=== PATIENT | male | born 1935 | race Caucasian/White ===

== ENCOUNTER 2024-04-23 09:28 | Emergency (ER) | payer MEDICARE, SELFPAY ==
[2024-04-23 09:32] VITALS: BP 190/75; PULSE 64; RESP 18; TEMP 36.6; O2SAT 99; BMI 23.8
--- OUTSIDE RECORDS SUMMARY | 2024-04-23 09:32 | XMS_ITS | Clinical Summary ---
Author Organization [facility] Address [place], [place] [address] Care Team Providers Care Pharmacists Name Role Phone Tim Corral MD Primary Care Provider [phone]- [phone] Allergies Active Allergy Reactions Criticality Noted Date Comments Nsaids (Non-Steroidal Anti-I nflammatory Drug) Hives,Edema 04/12/2009 Medications No known medications Active Problems No known active problems Immunizations Name Administration Dates Next Due AMB INFLUENZA IIV3 (AGE 65+ YRS) PF (Flu Clinic Only) 02/25/2019 AMB Influenza, IIV3 (Age >=3 years)(Flu Clinic Only) 03/06/2012,03/07/2011,02/21/2010,2007 Amb Influenza, Inact (High-d ose) (Flu Clinic Only) 03/10/2016,03/05/2014 Amb Influenza, Inactivated A IIV4 (Age 65+ Years) Preserv Free 02/10/2020 COVID-19 VACCINE SPIKEVAX (M ODERNA 50MCG/0.5ML) 12YO+ PFS 02/06/2023 COVID-19 vaccine (Pfizer-Bio NTech 30mcg/0.3mL) PF, MDV 02/17/2021,07/06/2020,06/15/2020 Influenza, High-dose Inactivated 03/03/2015 Influenza, IIV3 (Age >=3 years) 02/25/2013,03/02,03/18/2007 Influenza, Inactivated AIIV4 (Age 65+ Years) Preserv Free 03/07/2023 Influenza, Inactivated IIV3 (Age 65+ Years) Preserv Free 02/28/2018,03/07/2017 Pneumococcal Poly,23-Valent (Pneumovax) 02/28/2018 Pneumococcal conj 13-Valent (Prevnar 13) 03/07/2017 Family History Medical History Relation Name Comments Cancer-prostate Brother 1 Justin Other Brother 2 Aly Back problems w fusion. Diabetes type II Father Heart attack Father of an [place] i n the setting of Htn and DM Type 2 at age 69 Hypertension Father Dementia Mother of Dementi a at 89 Relation Name Status Comments Brother 1 Justin Alive Brother 2 Aly Alive Brother 3 Servando Alive Father Mother Social History Tobacco Use Types Packs/Day Years Used Date Smoking Tobacco: Never Passive Smoke Exposure: Never Smokeless Tobacco: Never Tobacco Cessation:Counseling Given: Not Answered Alcohol Use Standard Drinks/Week Comments Not Currently 0 (1 standard drink = 0.6 oz pur e alcohol) a couple times a year PHQ-2 Answer Date Recorded PHQ-2 TOTAL SCORE 0 03/28/2023 Social Connections Answer Date Recorded Frequency of Communication with Friends and Fami ly Not on file 09/22/2023 Financial Resource Strain Answer Date R ecorded Difficulty of Paying Living Expenses 3 09/20/2022 Difficulty of Paying Living Expenses Not on file 09/20/2022 Food Insecurity Answer Date Recorded Worried About Running Out of Food in the Last Ye ar 1 09/20/2022 Transportation Needs Answer Date Record ed Lack of Transportation (Medical) 1 09/20/2022 Housing Stability Answer Date Recorded Unable to Pay for Housing in the Last Year 1 09/20/2022 Sex and Gender Information Value Date Recorded Sex Assigned at Not on file Legal Sex Male 5:25 AM APPLICATION PACKAGER Gender Identity Not on file Sexual Orientation Not on file 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 Not on file Not on file Obstetrics History Last Filed Vital Signs Vital Sign Reading Time Taken Comments Blood Pressure 124/70 03/28/2023 1:34 PM APPLICATION PACKAGER Pulse 76 03/28/2023 1:14 PM APPLICATION PACKAGER Temperature 36.8 C (98.2 F) 09/20/2022 7:11 AM CDT Respiratory Rate - - Oxygen Saturation 97% 03/28/2023 1:14 PM APPLICATION PACKAGER Inhaled Oxygen Concentration - - Weight 81.1 kg (178 lb 14.4 oz) 03/28/2023 1:14 PM APPLICATION PACKAGER Height 174.2 cm (5' 8.58) 03/28/2023 1:14 PM CS T Body Mass Index 26.74 03/28/2023 1:14 PM APPLICATION PACKAGER Plan of Treatment Health Maintenance Due Date Last Done Comments Tdap 1946 Tetanus booster 1957 Zoster (shingles) series for age 50+ (1 of 2) 09/15/1987 RSV vaccine for adults or (1 - 1-dose 75+ series) 2012 COVID-19 vaccine series ( season) 2023 02/06/2023, 02/14/2022, 02/17/2021, Additional history exists Influenza for age 65+ 12/23/2023 03/07/2023 , 02/10/2020, 02/25/2019, Additional history exists BMI (ht and wt on same day) for age 18+ 03/28/2024 03/28/2023, 07/13/2021, 02/02/2016, Additional history exists Depression screening for age 12+ 03/28/2024 03/28/20, 02/02/2016 Medicare Wellness for age 65+ 03/28/2024 03/28/2023 Pneumococcal series for age 50+ Completed 8, 03/07/2017 Insurance [facility] MEDICARE ADVANTAGE MR Care Teams Pharmacists Relationship Specialty Start Date End Date Tim Corral MD [address] [place] [address] PCP - General Family Practice 09/20/22
--- NOTE | 2024-04-23 09:41 | ED_ITS ---
HPI - Back Pain/Injury General Time Seen by Provider: 09:41 Date Seen: 04/23/24 Chief Complaint: Back Injury/Pain Stated Complaint: Fall on Sunday - pain Time Seen by Provider: 04/23/24 09:32 Source: patient, family and RN notes reviewed Mode of arrival: ambulatory Limitations: no limitations History of Present Illness HPI Narrative: This 88-year-old male is reporting back pain, he has had 2 falls in the last 2 weeks. Fell about 2 weeks ago, landed on his upper back, had another fall on Sunday 2 days ago landing on the same spot. He had severe pain initially, iced in took some Tylenol and felt better. Last night he could not get comfortable, could not find a position of comfort. Standing actually maybe felt the best. He tried sleeping upright. He has taken Tylenol, last dose around 5:00 a.m. this morning. He has pain at the base of his neck to just right of his neck. If there is no pain with breathing. He cannot really define anything that in si jesús the sharp pain that he will feel in this right upper back/base of his neck area. It just is coming and is uncomfortable despite Tylenol. Since the fall on Sunday, but he is notice that the pad of his right thumb feels numb. The pain is not radiating down the arm. He has noted no motor issues, no lack of coordination. He has had no headache. He is not on any blood thinners. He did reportedly hit his head during the fall. He has not been evaluated by anybody for his injuries yet. He denies any increased pain with movement of his neck, had no loss of consciousness at any time. Related Data Home Medications ?Medication ?Instructions ?Recorded ?Confirmed No Known Home Medications 02/08/23 04/23/24 Allergies Allergy/AdvReac Type Severity Reaction Status Date / Time NSAIDS (Non-Steroidal Allergy Unknown Verified 04/23/24 09:39 Anti-Inflamma Review of Systems Status of ROS: Reports: 6 or more systems reviewed and unremarkable except as noted in History and below [facility] Medical History Excessive cerumen in both ear canals ?H61.23 - Impacted cerumen, bilateral (ICD-10) Social History Smoking Status: Never smoker Do you use any of these nicotine containing products: None How often do you have a drink containing alcohol: never How often do you have six or more drinks on one occasion: Never AUDIT-C Alcohol total score: 0 Non-prescribed substance use: denies use Exam Const: Vital Signs, click to edit/add: Vital Signs - 24 hr 04/23/24 09:32 04/23/24 11:41 04/23/24 11:49 Temperature 97.8 F Pulse Rate [Right Pulse Oximeter] 64 73 Respiratory Rate 18 18 18 Blood Pressure [Ri ght Upper Arm] 190/75 H 183/95 H Pulse Oximetry 99 100 Oxygen Delivery Me thod Room Air Room Air This 88-year-old male is alert, interactive, no apparent distress. He is ambulatory into the ED of his own accord. Pupils equal round reactive, sclera clear. He is wearing a mask. No visible traumatic change on his head, neck or back. He does not have any reproducible midline tenderness throughout the entirety of his spine, no significant paraspinous tenderness, cannot reproduce his pain. The area of pain and questions certainly seems to be the right base of his neck into the upper thoracic area. He does not have pain over the scapula, has full range of motion of his upper extremities with preserve strength that is 5/5 and symmetric. He complains of numbness in the pad of his right thumb but has normal sensation elsewhere. The skin of his hand is warm and dry, good radial pulse. He has normal rapid alternating finger movements. Lungs are clear, good air entry, no wheezing or crackles. There is no crepitus over his chest wall, no chest wall tenderness. Range of motion of his shoulders and neck does not produce his pain. CV regular rate and rhythm, no murmur. Documenting provider has reviewed patient's vital signs: yes Course Course ED Course: Reviewed with patient and his that we are going to do imaging with head CT, do cervical and thoracic spine CT. With his right thumb numbness, there is potentially concern for spinal fracture possibly causing nerve issue. He declines pain management at this time but we will review this given Tylenol is not helping him. He is comfortable awaiting imaging results to further guide us. He has retained motor strength. Reevaluation(s) Time of Reevaluation #1: 10:40 Reevaluation #1: Updated patient that there is nothing seen on his imaging to explain his pain. His thoracic spine reading is preliminary. Given his symptoms, do think we need to proceed with chest CT with IV contrast to ensure no thoracic wall/rib trauma. He understands that he will have to have an IV, we will get a point of care creatinine. Time of Reevaluation #2: 13:28 Reevaluation #2: Have reviewed with patient that his imaging is not showing any evidence of acute traumatic change. He is not sick, no active respiratory symptoms. Did add on a troponin and do an EKG just to ensure no atypical presentation of cardiac disease. His troponin is normal. He notes that just sitting here, his pain has started to relieve itself, has not had Tylenol in about 8 hours. Did discuss further pain management with him, consideration of prescription for muscle relaxant. He likes to try to minimize medicines, would prefer to just try to stick with Tylenol and watch referred other day. We discussed ice or heat, can use whichever feels better. Vital Signs Vital signs: Initial Vital Signs Temperature 97.8 F 04/23/24 09:32 Temperature Source Temporal Artery Scan 04/23/24 09:32 Pulse Rate 64 04/23/24 09:32 Pulse Rhythm Regular 04/23/24 09:32 Respiratory Rate 18 04/23/24 09:32 Blood Pressure 190/75 H 04/23/24 09:32 Blood Pressure Mean 113 H 04/23/24 09:32 Blood Pressure Position Sitting 04/23/24 09:32 Pulse Oximetry 99 04/23/24 09:32 Oxygen Delivery Method Room Air 04/23/24 09:32 Vital Signs Temperature 97.8 F 04/23/24 09:32 Pulse Rate 64 04/23/24 09:32 Respiratory Rate 18 04/23/24 09:32 Blood Pressure 190/75 H 04/23/24 09:32 Pulse Oximetry 99 04/23/24 09:32 Oxygen Delivery Method Room Air 04/23/24 09:32 Temperature 97.8 F 04/23/24 09:32 Pulse Rate 73 04/23/24 11:41 Respiratory Rate 18 04/23/24 11:49 Blood Pressure 183/95 H 04/23/24 11:41 Pulse Oximetry 100 04/23/24 11:41 Oxygen Delivery Method Room Air 04/23/24 11:41 MDM - Back Pain/Injury Lab Data Attestation: I reviewed the patient's lab results. Labs: Lab Results 04/23/24 04/23/24 04/23/24 Range/Units 10:39 10:50 12:46 WBC 6.43 (4.50-11.00) K/uL RBC 4.51 (4.30-5.90) m/uL Hgb 14.2 (13.5-17.5) gm/dL Hct 44.2 (37.0-53.0) % MCV 98 (80-100) fL MCH 32 (26-34) pg MCHC 32 (32-36) gm/dL RDW Coeff of Farhana 13.6 (11.5-15.5) % Plt Count 224 (140-440) K/uL Neut % (Auto) 58.2 (42.0-72.0) % Lymph % (Auto) 22.9 (20-44) % Juncos % (Auto) 12.0 H (0.0-11.0) % Eos % (Auto) 6.1 (0.0-7.0) % Baso % (Auto) 0.6 (0.0-3.0) % Neut # (Auto) 3.75 (1.7-7.0) K/uL Lymph # (Auto) 1.47 (0.90-2.90) K/uL Juncos # (Auto) 0.80 (0.00-0.90) K/UL Eos # (Auto) 0.39 (0.00-0.50) K/uL Baso # (Auto) 0.04 (0.00-0.30) K/uL Abs Immat Gran (auto) 0.01 (0.00-0.30) K/uL Imm/Tot Granulo (auto) 0.2 % Sodium 138 (135-149) mmol/L Potassium 4.0 (3.6-5.1) mmol/L Chloride 103 (96-114) mmol/L Carbon Dioxide 28 (20-32) mmol/L Anion Gap 7 (7-15) mEq/L BUN 28 (7-30) mg/dL Creatinine 0.7 (0.5-1.5) mg/dL Estimated Creat Clear 54.75 Estimated GFR 90 ml/min Glucose 98 (60-115) mg/dL Calcium 8.6 (8.4-10.6) mg/dL POC Creatinine 0.9 (0.6-1.3) mg/dl POC Troponin I 0.00 L (0.01-0.04) ng/ml Imaging Data CT scan - head: Attestation: I have reviewed the pertinent imaging results. Radiologist's impression: Patient: JONNY RANDALL Facility:?[facility] Patient ID:?[id number] Site Patient ID:?[id number]. Site :?[id number] Study:?CT-Head W/O-04/23/2024 10:08:47 AM Ordering Physician:?Vickie Nunez Final Report: Indication: Fall hit back of neck Technique: Noncontrast head CT Comparison: No comparison Findings: Generalized mild parenchymal volume Axial noncontrast images through the brain parenchyma demonstrates no acute intracranial hemorrhage or mass. No midline shift. No abnormal extra-axial air fluid collections. Skull and scalp are unremarkable. Impression: No acute intracranial hemorrhage or mass. Please note that all CT scans at this facility use dose modulation, iterative reconstruction, and/or weight-based dosing when appropriate to reduce radiation dose to as low as reasonably achievable. Dictated by Radha Samaniego MD @ 04/23/2024 10:29:22 AM (Electronic Signature) CT cervical spine: Attestation: I have reviewed the pertinent imaging results. Radiologist's impression: Patient: JONNY RANDALL Facility:?[facility] Patient ID:?[id number] Site Patient ID:?[id number]. Site :?[id number] Study:?CT-Spine Cervical W/O-04/23/2024 10:09:09 AM Ordering Physician:?Vickie Nunez Final Report: Indication: Fall hit head Technique: Cervical spine CT scan Comparison: Findings: Normal height and alignment of the cervical vertebral bodies. The lateral masses of C1 align with the articular processes of C2. No acute fracture seen. Prevertebral soft tissues within normal limits. Impression: No acute vertebral body fracture or traumatic malalignment. Please note that all CT scans at this facility use dose modulation, iterative reconstruction, and/or weight-based dosing when appropriate to reduce radiation dose to as low as reasonably achievable. Dictated by Radha Samaniego MD @ 04/23/2024 10:32:08 AM (Electronic Signature) CT thoracic spine: Attestation: I have reviewed the pertinent imaging results. Radiologist's impression: Patient: JONNY RANDALL Facility:?[facility] Patient ID:?[id number] Site Patient ID:?[id number]. Site :?[id number] Study:?CT-Spine Thoracic W/O-04/23/2024 10:10:40 AM Ordering Physician:?Vickie Nunez Preliminary Report: Indication [] Fall back pain Findings Normal height and alignment of the thoracic vertebral bodies diffuse degenerative change. No acute fracture seen. Mild basilar atelectasis. Subpleural reticulation could be related to mild fibrosis Low-attenuation lesion left kidney incompletely assessed Read by:?Radha Samaniego MD @04/23/2024 10:36:[address] scan - chest: Attestation: I have reviewed the pertinent imaging results. Radiologist's impression: Patient: JONNY RANDALL Facility:?[facility] Patient ID:?[id number] Site Patient ID:?[id number]. Site :?[id number] Study:?CT-Chest w/ 75cc [id number]/1/2025 11:34:23 AM Ordering Physician:?Vickie Nunez Final Report: INDICATION: Fall, right upper back pain TECHNIQUE: CT chest with 75 cc Isovue 370 IV contrast. COMPARISON: Same day cervical and thoracic spine CT FINDINGS: Lungs and pleura: Left lower lobe cystic nodule measuring 7 mm (4/119). Focus of ground-glass within the superior left lower lobe measuring 9 mm (4/60). Right apical solid nodule measuring 4 mm (4/22). Linear ground-glass in the left lower lobe may reflect atelectasis. No pleural effusions, pleural thickening, or pneumothorax. Heart and vasculature: Heart size is normal. Thoracic aorta and pulmonary artery are normal in caliber.Mild coronary artery calcifications. Lymph nodes/mediastinum: No mediastinal, hilar, or axillary adenopathy. Chest wall: No masses. Upper abdomen: Scattered hypoattenuating hepatic lesions are incompletely characterized. Left renal cyst, incompletely imaged. Bones: Unremarkable for age. IMPRESSION: 1. No acute findings. 2. Scattered ground-glass and pulmonary nodules may be infectious/inflammatory. Consider follow-up CT in 3 months to assess stability depending on patient risk factors. 3. Hepatic hypoattenuating lesions are incompletely characterized although likely benign cysts. Please correlate with prior imaging if available. Please note that all CT scans at this facility use dose modulation, iterative reconstruction, and/or weight-based dosing when appropriate to reduce radiation dose to as low as reasonably achievable. Dictated by Kayla Conteh MD @ 04/23/2024 12:23:32 PM (Electronic Signature) ECG Data Attestation: I personally reviewed and interpreted this ECG as follows: (Normal sinus rhythm with sinus arrhythmia, 62 beats per minute. No infarct or ischemia.) ECG interpretation date: 04/23/24 ECG interpretation time: 13:28 Discharge Plan Discharge Clinical Impression: Thoracic back pain, Numbness of right thumb Patient Disposition: Home, Self-Care Condition: Stable Instructions: Paresthesia (ED), Thoracic Pain (ED) Additional Instructions: Certainly can continue with Tylenol per bottle directions as needed for pain control. If you have ongoing symptoms, will need to follow up in clinic, consideration of MRI imaging of your neck/spine may need to be considered. We are always here if you have concerns of worsening. Activity Level: Activity as Tolerated Prescriptions: No Action No Known Home Medications Follow Up/Referrals: Provider,Not a Local [Non-Staff] - Stand Alone Forms: [employer] Info Instructions
--- NOTE | 2024-04-23 09:48 | CRLHL7_ITS ---
For Patients: As a result of the Century Cures Act, medical imaging exams and procedure reports are released immediately into your electronic medical record. You may view this report before your referring provider. If you have questions, please contact your health care provider. Indication: Fall, hit head, back pain, base of neck pain Technique: Noncontrast axial CT of the thoracic spine with coronal and sagittal reformats. Comparison: Same day CT chest Findings: Mildly accentuated thoracic kyphosis. Trace degenerative retrolisthesis at C5-6 and C6-7. Mild chronic anterior wedge configuration of a few midthoracic vertebral bodies. No acute fracture identified. Multilevel spondylosis with flowing anterior vertebral osteophytes, partial disc space ankylosis, and scattered supraspinous ligament ossification. No evidence of high-grade neural foraminal or spinal canal stenosis. Included surrounding soft tissues are detailed in a separate report. Impression: 1. No evidence of acute fracture or traumatic malalignment in the thoracic spine. 2. Thoracic spondylosis and multilevel ankylosis without high-grade neural foraminal or spinal canal stenosis. Please note that all CT scans at this facility use dose modulation, iterative reconstruction, and/or weight-based dosing when appropriate to reduce radiation dose to as low as reasonably achievable. Dictated by Barbara Deras MD @ 04/24/2024 9:39:30 AM (Electronically Signed)
--- NOTE | 2024-04-23 09:48 | CRLHL7_ITS ---
For Patients: As a result of the Century Cures Act, medical imaging exams and procedure reports are released immediately into your electronic medical record. You may view this report before your referring provider. If you have questions, please contact your health care provider. Indication: Fall hit back of neck Technique: Noncontrast head CT Comparison: No comparison Findings: Generalized mild parenchymal volume Axial noncontrast images through the brain parenchyma demonstrates no acute intracranial hemorrhage or mass. No midline shift. No abnormal extra-axial air fluid collections. Skull and scalp are unremarkable. Impression: No acute intracranial hemorrhage or mass. Please note that all CT scans at this facility use dose modulation, iterative reconstruction, and/or weight-based dosing when appropriate to reduce radiation dose to as low as reasonably achievable. Dictated by Radha Samaniego MD @ 04/23/2024 10:29:22 AM (Electronically Signed)
--- NOTE | 2024-04-23 09:49 | CRLHL7_ITS ---
For Patients: As a result of the Cures Act, medical imaging exams and procedure reports are released immediately into your electronic medical record. You may view this report before your referring provider. If you have questions, please contact your health care provider. Indication: Fall hit head Technique: Cervical spine CT scan Comparison: Findings: Normal height and alignment of the cervical vertebral bodies. The lateral masses of C1 align with the articular processes of C2. No acute fracture seen. Prevertebral soft tissues within normal limits. Impression: No acute vertebral body fracture or traumatic malalignment. Please note that all CT scans at this facility use dose modulation, iterative reconstruction, and/or weight-based dosing when appropriate to reduce radiation dose to as low as reasonably achievable. Dictated by aRdha Samaniego MD @ 04/23/2024 10:32:08 AM (Electronically Signed)
--- OUTSIDE RECORDS SUMMARY | 2024-04-23 10:08 | XMS_ITS | Clinical Summary ---
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 Not on file Not on file Obstetrics History Last Filed Vital Signs Vital Sign Reading Time Taken Comments Blood Pressure 124/70 03/28/2023 1:34 PM TOY ASSEMBLER WOOD Pulse 76 03/28/2023 1:14 PM TOY ASSEMBLER WOOD Temperature 36.8 C (98.2 F) 09/20/2022 7:11 AM CDT Respiratory Rate - - Oxygen Saturation 97% 03/28/2023 1:14 PM TOY ASSEMBLER WOOD Inhaled Oxygen Concentration - - Weight 81.1 kg (178 lb 14.4 oz) 03/28/2023 1:14 PM TOY ASSEMBLER WOOD Height 174.2 cm (5' 8.58) 03/28/2023 1:14 PM CS T Body Mass Index 26.74 03/28/2023 1:14 PM TOY ASSEMBLER WOOD Plan of Treatment Health Maintenance Due Date [...] for age 50+ Completed 8, 03/07/2017 Insurance [facility] MEDICARE ADVANTAGE MR Care Teams Clinical Document Improvement Educator Relationship Specialty Start Date End Date Tim Corral MD [address] [place] [address] PCP - General Family Practice 09/20/22
--- NOTE | 2024-04-23 10:38 | CRLHL7_ITS ---
For Patients: As a result of the Century Cures Act, medical imaging exams and procedure reports are released immediately into your electronic medical record. You may view this report before your referring provider. If you have questions, please contact your health care provider. INDICATION: Fall, right upper back pain TECHNIQUE: CT chest with 75 cc Isovue 370 IV contrast. COMPARISON: Same day cervical and thoracic spine CT FINDINGS: Lungs and pleura: Left lower lobe cystic nodule measuring 7 mm (4/119). Focus of ground-glass within the superior left lower lobe measuring 9 mm (4/60). Right apical solid nodule measuring 4 mm (4/22). Linear ground-glass in the left lower lobe may reflect atelectasis. No pleural effusions, pleural thickening, or pneumothorax. Heart and vasculature: Heart size is normal. Thoracic aorta and pulmonary artery are normal in caliber.Mild coronary artery calcifications. Lymph nodes/mediastinum: No mediastinal, hilar, or axillary adenopathy. Chest wall: No masses. Upper abdomen: Scattered hypoattenuating hepatic lesions are incompletely characterized. Left renal cyst, incompletely imaged. Bones: Unremarkable for age. IMPRESSION: 1. No acute findings. 2. Scattered ground-glass and pulmonary nodules may be infectious/inflammatory. Consider follow-up CT in 3 months to assess stability depending on patient risk factors. 3. Hepatic hypoattenuating lesions are incompletely characterized although likely benign cysts. Please correlate with prior imaging if available. Please note that all CT scans at this facility use dose modulation, iterative reconstruction, and/or weight-based dosing when appropriate to reduce radiation dose to as low as reasonably achievable. Dictated by Kayla Conteh MD @ 04/23/2024 12:23:32 PM (Electronically Signed)
[2024-04-23 11:01] LABS: Basophils Absolute Auto 0.04 K/uL (0.00-0.30); Basophils Percent Auto 0.6 % (0.0-3.0); Eosinophils Absolute Auto 0.39 K/uL (0.00-0.50); Eosinophils Percent Auto 6.1 % (0.0-7.0); Hematocrit 44.2 % (37.0-53.0); Hemoglobin* 14.2 gm/dL (13.5-17.5); Immature Granulocytes Abs Auto 0.01 K/uL (0.00-0.30); Immature Granulocytes Pct Auto 0.2 %; Lymphocytes Absolute Auto 1.47 K/uL (0.90-2.90); Lymphocytes Percent Auto 22.9 % (20-44); Mean Corpuscular HGB Conc 32 gm/dL (32-36); Mean Corpuscular Hemoglobin 32 pg (26-34); Mean Corpuscular Volume 98 fL (80-100); Neutrophils Absolute Auto 3.75 K/uL (1.7-7.0); Neutrophils Percent Auto 58.2 % (42.0-72.0); Platelet Count* 224 K/uL (140-440); RDW Coefficient of Variation % 13.6 % (11.5-15.5); Red Blood Count 4.51 m/uL (4.30-5.90); Slide Review Reflex No; White Blood Count* 6.43 K/uL (4.50-11.00)
[2024-04-23 11:12] LABS: Creatinine, Point-of-Care* 0.9 mg/dl (0.6-1.3)
[2024-04-23 11:22] LABS: Chloride* 103 mmol/L (96-114); Sodium* 138 mmol/L (135-149)
[2024-04-23 11:25] LABS: Anion Gap 7 mEq/L (7-15); Blood Urea Nitrogen* 28 mg/dL (7-30); Carbon Dioxide* 28 mmol/L (20-32); Creatinine* 0.7 mg/dL (0.5-1.5); Est. Creatinine Clearance* 54.75; Estimated Glomerular Filt Rate 90 ml/min; Glucose* 98 mg/dL (60-115)
[2024-04-23 11:26] LABS: Calcium* 8.6 mg/dL (8.4-10.6)
[2024-04-23 11:41] VITALS: BP 183/95; PULSE 73; RESP 18; O2SAT 100
[2024-04-23 11:49] VITALS: RESP 18
== END 2024-04-23 13:43 | disposition home or self-care (01) ==
PROVIDERS: Emergency Provider Family Medicine; PCP Family Medicine
DX: M54.6 Pain in thoracic spine (principal); R20.0 Anesthesia of skin
CPT/HCPCS: 36415; 70450; 71260; 72125; 72128; 80048; 82565; 84484; 85025; 93005; 99284; 99285; Q9967

== ENCOUNTER 2024-12-28 07:02 | Outpatient (CLI) | payer MEDICARE, SELFPAY | END 2024-12-28 07:03 | disposition home or self-care (01) | LOC: AMB 01-01 10:09 | PROVIDERS: PCP Family Medicine; Visit Provider Internal Medicine | DX: R53.1 Weakness (principal) | CPT/HCPCS: A0425; A0427 ==

== ENCOUNTER 2024-12-28 07:39 | Emergency (ER) | payer MEDICARE, SELFPAY ==
--- OUTSIDE RECORDS SUMMARY | 2024-12-28 07:42 | XMS_ITS | Clinical Summary ---
Author Organization [facility] Address [address] [place] [id number] Care Team Providers Care Field Support Representative Name Role Phone Tim Corral MD Primary Care Provider [phone] Allergies Active Allergy Reactions Criticality Noted Date Comments Nsaids (Non-Steroidal Anti-I nflammatory Drug) Hives,Edema 04/12/2009 Medications No known medications Active Problems No known active problems Immunizations Immunization Administration Dates Next Due AMB INFLUENZA IIV3 [...] II Father Heart attack Father of an [place] i n the setting of Htn and [...] on file Legal Sex Male 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 Gender Identity Not on file Sexual Orientation Not on file 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 Not on file Not on file Obstetrics History Last Filed Vital Signs Vital Sign Reading Time Taken Comments Blood Pressure 124/70 03/28/2023 1:34 PM COMPENSATION SUPERVISOR Pulse 76 03/28/2023 1:14 PM COMPENSATION SUPERVISOR Temperature 36.8 C (98.2 F) 09/20/2022 7:11 AM CDT Respiratory Rate - - Oxygen Saturation 97% 03/28/2023 1:14 PM COMPENSATION SUPERVISOR Inhaled Oxygen Concentration - - Weight 81.1 kg (178 lb 14.4 oz) 03/28/2023 1:14 PM COMPENSATION SUPERVISOR Height 174.2 cm (5' 8.58) 03/28/2023 1:14 PM CS T Body Mass Index 26.74 03/28/2023 1:14 PM COMPENSATION SUPERVISOR Plan of Treatment Health Maintenance Due Date Last Done Comments Tetanus booster 1946 Zoster (shingles) series for age 50+ (1 of 2) 09/15/1987 RSV vaccine for adults or (1 - 1-dose 75+ series) 2012 BMI (ht and wt on same day) for age 18+ 03/28/2024 03/28/2023, 07/13/2021, 02/02/2016, Additional history exists Depression screening for age 12+ 03/28/2024 03/28/2023, 02/02/2016 Medicare Wellness for age 65+ 03/28/2024 03/28/2023 COVID-19 vaccine series ( season) 2024 02/06/2023, 02/14/2022, 02/17/2021, Additional history exists Influenza Vaccine (#1) 2024 , 02/10/2020, 02/25/2019, Additional history exists Pneumococcal series for age 50+ Completed 02/28/2018, 03/07/2017 Hepatitis B series for 19+ Aged Out N o longer eligible based on patient's age to complete this topic Insurance [employer] MEDICARE ADVANTAGE MR Care Teams Field Support Representative Relationship Specialty Start Date End Date Tim Corral MD [place] [address] PCP - General Family Practice 09/20/22
[2024-12-28 07:45] VITALS: BP 139/66; PULSE 87; RESP 16; TEMP 38; O2SAT 96; BMI 24.1
[2024-12-28 07:57] VITALS: O2SAT 95
--- NOTE | 2024-12-28 07:58 | CRLHL7_ITS ---
For Patients: As a result of the Cures Act, medical imaging exams and procedure reports are released immediately into your electronic medical record. You may view this report before your referring provider. If you have questions, please contact your health care provider. INDICATION: Sepsis. TECHNIQUE: Chest 1 views. COMPARISON: April 23, 2024. FINDINGS: Cardiovasculature and mediastinum: Heart size is normal. Unremarkable mediastinum. Lungs and pleural spaces: Lungs are clear. No sign of infiltrate or mass. No sign of pleural effusion. No pneumothorax. Bones and soft tissues: No significant findings. IMPRESSION: Negative chest. No sign of pneumonia. Dictated by Cheko Hammonds MD @ 12/28/2024 8:14:34 AM (Electronically Signed)
--- NOTE | 2024-12-28 08:00 | ED.GENADULT ---
HPI - General Adult General Chief complaint: Weakness Stated complaint: flu-like symptoms Time Seen by Provider: 12/28/24 07:50 History of Present Illness HPI narrative: Patient is a very pleasant 89 year white male who lives independently with his at home. He started feeling some chills and cough yesterday. He continues to cough today. His reports that is a coarse congested type cough. He is not really produce any sputum. He has no history of respiratory problems. He is allergic to NSAIDs but otherwise and had a unremarkable past medical history. He is on no home medications by his report. He reports some chills but no rigors, he has had a temperature he feels, it is 100.4 in the ER today. His pulse is 87 O2 sat 96% on room air. He does not feel short of breath he did slide off the bed and then was chest seem to see if he could get up but he had trouble was brought in by ambulance. He has no chest pain, no shortness of breath, no cyanosis or bluish discoloration on the mouth. Related Data Previous Rx's ?Medication ?Instructions ?Recorded nirmatrelvir 150 mg (10)-ritonavir See Rx Instructions PO .COMPLEX 12/28/24 100 mg (10) tablets in a dose pack #20 ea (Paxlovid) nirmatrelvir 150 mg (10)-ritonavir See Rx Instructions PO .COMPLEX 12/28/24 100 mg (10) tablets in a dose pack #20 ea (Paxlovid) Allergies Allergy/AdvReac Type Severity Reaction Status Date / Time NSAIDS (Non-Steroidal Allergy Unknown Verified 11/29/24 09:43 Anti-Inflamma Review of Systems Status of ROS: Reports: 6 or more systems reviewed and unremarkable except as noted in History and below [facility] Medical History Excessive cerumen in both ear canals ?H61.23 - Impacted cerumen, bilateral (ICD-10) Social History Smoking Status: Never smoker Do you use any of these nicotine containing products: None How often do you have a drink containing alcohol: never How often do you have six or more drinks on one occasion: Never AUDIT-C Alcohol total score: 0 Non-prescribed substance use: denies use Exam Narrative: Exam Narrative: Objective: Mild temperature to 100.4 He is alert orient x3 HEENT shows no facial asymmetry throat clear slightly dry neck is supple chest is diminished air exchange but no obvious rales or wheezing Heart rhythm regular 2/6 systolic murmur occasional ectopic beat Abdomen benign soft Extremities are no edema neurologic nonfocal Good peripheral perfusion noted in extremities., no skin rashes Const: Vital Signs, click to edit/add: Vital Signs - 24 hr 12/28/24 07:45 12/28/24 07:57 12/28/24 08:25 Temperature 100.4 F H Pulse Rate 82 Pulse Rate [Pulse Oximeter] 87 Respiratory Rate 16 12 Blood Pressure Blood Pressure [Le ft Upper Arm] 139/66 Pulse Oximetry 96 95 95 Oxygen Delivery Me thod Room Air 12/28/24 08:30 12/28/24 08:31 Temperature Pulse Rate 81 82 Pulse Rate [Pulse Oximeter] Respiratory Rate 19 Blood Pressure 129/60 Blood Pressure [Le ft Upper Arm] Pulse Oximetry 94 93 Oxygen Delivery Me thod Course Vital Signs Vital signs: Initial Vital Signs Temperature 100.4 F H 12/28/24 07:45 Temperature Source Temporal Artery Scan 12/28/24 07:45 Pulse Rate 87 12/28/24 07:45 Respiratory Rate 16 12/28/24 07:45 Blood Pressure 139/66 12/28/24 07:45 Blood Pressure Mean 90 12/28/24 07:45 Pulse Oximetry 96 12/28/24 07:45 Oxygen Delivery Method Room Air 12/28/24 07:45 Vital Signs Temperature 100.4 F H 12/28/24 07:45 Pulse Rate 87 12/28/24 07:45 Respiratory Rate 16 12/28/24 07:45 Blood Pressure 139/66 12/28/24 07:45 Pulse Oximetry 96 12/28/24 07:45 Oxygen Delivery Method Room Air 12/28/24 07:45 Temperature 100.4 F H 12/28/24 07:45 Pulse Rate 82 12/28/24 08:31 Respiratory Rate 19 12/28/24 08:30 Blood Pressure 129/60 12/28/24 08:31 Pulse Oximetry 93 12/28/24 08:31 Oxygen Delivery Method Room Air 12/28/24 07:45 Medications Administered Medications: Generic Name Dose Route Start Last Admin Trade Name Freq PRN Reason Stop Dose Admin Sodium Chloride 2,286.12 mls @ 762.04 mls/hr 12/28/24 08:00 12/28/24 08:26 0.9 % Sodium Chloride 1000 Ml 30 ml/kg infuse over 3 hr (2286.12 ml) 12/28/24 10:59 762.04 mls/hr IV Administration .Q3H DINORA Medical Decision Making MDM Narrative Medical decision making narrative: [age] year white male with chills and fever. I think at this point early on given his cough, ruling out COVID/influenza/pneumonia would be appropriate. Will start him on the sepsis protocol. Will hold antibiotics at this time until he we see if he has COVID or not. Will also check his chest x-ray. Antibiotics if the COVID negative an x-ray concerning. Will hydrate the patient with 30 mL/kilos, he does appear somewhat dry. Check electrolytes and labs as well. Blood cultures. Procalcitonin. Addendum 9:00 a.m. the patient is positive for COVID. He after informed discussion and mutual decision making we elected to give him Paxil of id is the onset ends illness was yesterday. He is elderly and at higher risk of severe illness. I think he can try going home given he has no hypoxia, does have family involved. [facility]. Tylenol, rest, light activity, update regular doctor next 2-3 days with symptoms return as needed. Lab Data Labs: Lab Results 12/28/24 12/28/24 Range/Units 07:56 08:14 WBC 14.06 H (4.50-11.00) K/uL RBC 4.58 (4.30-5.90) m/uL Hgb 14.5 (13.5-17.5) gm/dL Hct 43.8 (37.0-53.0) % MCV 96 (80-100) fL MCH 32 (26-34) pg MCHC 33 (32-36) gm/dL RDW Coeff of Farhana 13.4 (11.5-15.5) % Plt Count 199 (140-440) K/uL Neut % (Auto) 84.0 H (42.0-72.0) % Lymph % (Auto) 4.1 L (20-44) % [place] % (Auto) 11.4 H (0.0-11.0) % Eos % (Auto) 0.0 (0.0-7.0) % Baso % (Auto) 0.2 (0.0-3.0) % Neut # (Auto) 11.80 H (1.7-7.0) K/uL Lymph # (Auto) 0.60 L (0.90-2.90) K/uL [place] # (Auto) 1.60 H (0.00-0.90) K/UL Eos # (Auto) 0.00 (0.00-0.50) K/uL Baso # (Auto) 0.00 (0.00-0.30) K/uL Abs Immat Gran (auto) 0.00 (0.00-0.30) K/uL Imm/Tot Granulo (auto) 0.3 % Sodium 135 (135-149) mmol/L Potassium 4.1 (3.6-5.1) mmol/L Chloride 100 (96-114) mmol/L Carbon Dioxide 27 (20-32) mmol/L Anion Gap 8 (7-15) mEq/L BUN 28 (7-30) mg/dL Creatinine 1.0 (0.5-1.5) mg/dL Estimated Creat Clear 53.74 Estimated GFR 73 ml/min Glucose 119 H (60-115) mg/dL Lactate 1.5 (0.5-1.9) mmol/L Calcium 8.5 (8.4-10.6) mg/dL Total Bilirubin 0.7 (0.1-1.5) mg/dL Direct Bilirubin 0.2 (0.0-0.5) mg/dL AST 62 H (12-35) U/L ALT 25 (4-50) U/L Alkaline Phosphatase 67 (40-150) U/L C-Reactive Protein 5.5 H (0.5-1.0) mg/dL Total Protein 8.2 (6.0-8.3) g/dL Albumin 4.5 (3.3-5.0) g/dL SARS-CoV-2 (PCR) POSITIVE SARS-CoV-2 A (Negative) Influenza Type A (PCR) Negative PCR FLU A (Negative) Influenza Type B (PCR) Negative PCR FLU B (Negative) RSV (PCR) Negative PCR RSV (Negative) Discharge Plan Discharge Clinical Impression: Cough, Fever, COVID-19 Patient Disposition: Home w/ Parent or Adult Condition: Stable Additional Instructions: Rest, fluids, Tylenol as needed, light activity, update regular doctor next 2-3 days.paxlovid from pharmacy Activity Level: Light activity Discharge Diet: Regular Prescriptions: New Paxlovid 150 mg (10)- 100 mg (10) tablets,dose pack See Rx Instructions .ROUTE .COMPLEX Qty: 20 0RF Rx Instructions: orally per package directions Paxlovid 150 mg (10)- 100 mg (10) tablets,dose pack See Rx Instructions .ROUTE .COMPLEX Qty: 20 0RF Rx Instructions: orally per package directions Follow Up/Referrals: Tim Corral MD [Primary Care Provider, Family Practice] Stand Alone Forms: [employer] Info Instructions
[2024-12-28 08:25] VITALS: PULSE 82; RESP 12; O2SAT 95
[2024-12-28] MEDS: SODIUM CHLORIDE 762.04 ML IV (08:26)
[2024-12-28 08:29] LABS: Lactate Sepsis w/Reflex* 1.5 mmol/L (0.5-1.9)
[2024-12-28 08:30] VITALS: PULSE 81; RESP 19; O2SAT 94
[2024-12-28 08:30] LABS: Hematocrit 43.8 % (37.0-53.0); Hemoglobin* 14.5 gm/dL (13.5-17.5); Immature Granulocytes Pct Auto 0.3 %; Mean Corpuscular HGB Conc 33 gm/dL (32-36); Mean Corpuscular Hemoglobin 32 pg (26-34); Mean Corpuscular Volume 96 fL (80-100); RDW Coefficient of Variation % 13.4 % (11.5-15.5); Red Blood Count 4.58 m/uL (4.30-5.90); White Blood Count* 14.06 K/uL (4.50-11.00)
[2024-12-28 08:31] VITALS: BP 129/60; PULSE 82; O2SAT 93
[2024-12-28 08:33] LABS: Immature Granulocytes Abs Auto 0.00 K/uL (0.00-0.30); Lymphocytes Absolute Auto 0.60 K/uL (0.90-2.90); Slide Review Reflex No
[2024-12-28 08:41] LABS: PCR FLU A Negative PCR FLU A (Negative); PCR FLU B Negative PCR FLU B (Negative); PCR RSV Negative PCR RSV (Negative); SARS PCR* POSITIVE SARS-CoV-2 (Negative)
[2024-12-28 09:01] LABS: Albumin* 4.5 g/dL (3.3-5.0); Chloride* 100 mmol/L (96-114); Potassium* 4.1 mmol/L (3.6-5.1); Sodium* 135 mmol/L (135-149)
[2024-12-28 09:04] LABS: Alanine Aminotransferase* 25 U/L (4-50); Alkaline Phosphatase* 67 U/L (40-150); Anion Gap 8 mEq/L (7-15); Aspartate Amino Transferase* 62 U/L (12-35); Bilirubin Direct* 0.2 mg/dL (0.0-0.5); Bilirubin Total* 0.7 mg/dL (0.1-1.5); Blood Urea Nitrogen* 28 mg/dL (7-30); Carbon Dioxide* 27 mmol/L (20-32); Creatinine* 1.0 mg/dL (0.5-1.5); Est. Creatinine Clearance* 53.74; Estimated Glomerular Filt Rate 73 ml/min; Total Protein* 8.2 g/dL (6.0-8.3)
[2024-12-28 09:05] LABS: Calcium* 8.5 mg/dL (8.4-10.6); Glucose* 119 mg/dL (60-115)
[2024-12-28 09:21] LABS: Procalcitonin* 0.29 ng/mL (<0.50)
== END 2024-12-28 10:27 | disposition home or self-care (01) ==
PROVIDERS: Emergency Provider Family Medicine; PCP Family Medicine
DX: U07.1 COVID-19 (principal); J96.01 Acute respiratory failure with hypoxia; M25.561 Pain in right knee; R94.5 Abnormal results of liver function studies
CPT/HCPCS: 36415; 71045; 80048; 80076; 83605; 84145; 85025; 86140; 87040; 87631; 94761; 99285; 99291; J7030

== ENCOUNTER 2024-12-29 14:16 | Outpatient (CLI) | payer MEDICARE, SELFPAY | END 2024-12-29 14:17 | disposition home or self-care (01) | LOC: AMB 01-01 13:42 | PROVIDERS: PCP Family Medicine; Visit Provider Family Medicine | DX: R53.1 Weakness (principal); M79.604 Pain in right leg | CPT/HCPCS: A0425; A0429 ==

== ENCOUNTER 2024-12-29 14:47 | Inpatient (IN) | payer MEDICARE, SELFPAY ==
[2024-12-29] VITALS (21 sets, daily range): BP systolic 118–132; BP diastolic 62–64; PULSE 76–96; RESP 16–28; TEMP 38.3; O2SAT 86–97; BMI 24.4
--- OUTSIDE RECORDS SUMMARY | 2024-12-29 14:49 | XMS_ITS | Clinical Summary ---
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 [employer] Not on file Not on file Not on file Obstetrics History Last Filed Vital Signs Vital Sign Reading Time Taken Comments Blood Pressure 124/70 03/28/2023 1:34 PM PAYMENT MANAGER Pulse 76 03/28/2023 1:14 PM PAYMENT MANAGER Temperature 36.8 C (98.2 F) 09/20/2022 7:11 AM CDT Respiratory Rate - - Oxygen Saturation 97% 03/28/2023 1:14 PM PAYMENT MANAGER Inhaled Oxygen Concentration - - Weight 81.1 kg (178 lb 14.4 oz) 03/28/2023 1:14 PM PAYMENT MANAGER Height 174.2 cm (5' 8.58) 03/28/2023 1:14 PM CS T Body Mass Index 26.74 03/28/2023 1:14 PM PAYMENT MANAGER Plan of Treatment Health Maintenance Due Date [...] Insurance [employer] MEDICARE ADVANTAGE MR Care Teams Retail Loss Prevention Specialist Relationship Specialty Start Date End Date [place] [address] PCP - General Family Practice 09/20/22
--- NOTE | 2024-12-29 15:05 | ED.WEAKNESS ---
HPI - Weakness General Time Seen by Provider: 15:05 Date Seen: 12/29/24 Chief complaint: Weakness Stated complaint: weakness has COVID Time Seen by Provider: 12/29/24 15:05 Source: patient, family and RN notes reviewed Mode of arrival: ambulatory Limitations: no limitations History of Present Illness HPI Narrative: Chester is a very pleasant 89-year-old male previously healthy who noted the onset of COVID like symptoms on SundayDecember 27. He was seen yesterday in the ED with O2 sats in the mid to upper 90s and discharged home on Paxlovid. He did take 1 dose but started to experience diarrhea and has not taken a dose today. He comes back to the emergency room because he is much more weak. He is coughing and is now noticing a productive cough. He has not had much to eat or drink. Additionally he is having a some right posterior leg pain. No history of fall or any trauma. No numbness or tingling. The pain goes down the back of his right leg stopping at the knee. He has no pain at rest but only when trying to get up out of bed. His also has COVID in is unable to take care of him given his weakened state. Chester denies any chest pain. He is occasionally short of breath any does think the oxygen is helping somewhat. Chester came in by EMS and upon arrival his O2 sats were 85% according to EMS. O2 sats have now gone up to 90-92 with 2 L of nasal cannula oxygen. Related Data Previous Rx's ?Medication ?Instructions ?Recorded nirmatrelvir 150 mg (10)-ritonavir See Rx Instructions PO .COMPLEX 12/28/24 100 mg (10) tablets in a dose pack #20 ea (Paxlovid) Allergies Allergy/AdvReac Type Severity Reaction Status Date / Time NSAIDS (Non-Steroidal Allergy Unknown Verified 12/29/24 18:53 Anti-Inflamma Review of Systems Status of ROS: Reports: 10 or more systems reviewed and unremarkable except as noted in History and below Const: Reports: fever, chills and fatigue Eyes: Denies: change in vision ENMT: Reports: throat pain and nasal congestion; Denies: neck pain Cardio: Reports: shortness of breath with exertion; Denies: chest pain or swelling of feet/ankles Resp: Reports: shortness of breath, cough and chest congestion GI: Reports: diarrhea; Denies: abdominal pain, nausea, vomiting or blood in stool : Denies: painful urination Musculo: Reports: extremity pain; Denies: back pain, neck pain or extremity swelling Neuro: Reports: weakness in extremities; Denies: headache Endo: Reports: fatigue [facility] Social History Smoking Status: Never smoker Do you use any of these nicotine containing products: None How often do you have a drink containing alcohol: never How often do you have six or more drinks on one occasion: Never AUDIT-C Alcohol total score: 0 Non-prescribed substance use: denies use Exam Narrative: Exam Narrative: Alert and oriented. Very pleasant. Does appear fatigued but nontoxic in appearance. Oral cavity with tacky mucous membranes. Neck is supple without lymphadenopathy. Heart with regular rate and rhythm and lungs are with crackles in the left lower lung base. Abdomen soft nontender. Pelvis stable. No pain with palpation down lumbar spine buttock. No significant pain with palpation down the leg. Moving lower extremities without difficulty. Sensation is distally intact. Const: Vital Signs, click to edit/add: Vital Signs - 24 hr 12/29/24 14:50 12/29/24 14:59 12/29/24 15:00 Temperature 100.9 F H Pulse Rate 90 89 Pulse Rate [Right Pulse Oximeter] 93 Respiratory Rate 28 H Blood Pressure Blood Pressure [Ri ght Upper Arm] 132/63 Pulse Oximetry 90 90 89 Oxygen Delivery Me thod Nasal Cannula Oxygen Flow Rate 2 12/29/24 15:15 12/29/24 15:49 12/29/24 16:00 Temperature Pulse Rate 96 90 94 Pulse Rate [Right Pulse Oximeter] Respiratory Rate Blood Pressure Blood Pressure [Ri ght Upper Arm] Pulse Oximetry 92 94 88 Oxygen Delivery Me thod Oxygen Flow Rate 12/29/24 16:15 12/29/24 16:29 12/29/24 16:30 Temperature Pulse Rate 86 87 91 Pulse Rate [Right Pulse Oximeter] Respiratory Rate 20 22 Blood Pressure 118/62 118/62 Blood Pressure [Ri ght Upper Arm] Pulse Oximetry 96 94 96 Oxygen Delivery Me thod Nasal Cannula Room Air Oxygen Flow Rate 1 12/29/24 16:30 12/29/24 16:45 12/29/24 17:00 Temperature Pulse Rate 93 84 87 Pulse Rate [Right Pulse Oximeter] Respiratory Rate Blood Pressure Blood Pressure [Ri ght Upper Arm] Pulse Oximetry 97 92 90 Oxygen Delivery Me thod Oxygen Flow Rate 12/29/24 17:15 12/29/24 17:29 12/29/24 17:30 Temperature Pulse Rate 89 Pulse Rate [Right Pulse Oximeter] Respiratory Rate 22 Blood Pressure Blood Pressure [Ri ght Upper Arm] Pulse Oximetry 86 L 94 Oxygen Delivery Me thod Room Air Nasal Cannula Oxygen Flow Rate 1 12/29/24 17:30 12/29/24 17:45 12/29/24 18:00 Temperature Pulse Rate 86 88 82 Pulse Rate [Right Pulse Oximeter] Respiratory Rate Blood Pressure Blood Pressure [Ri ght Upper Arm] Pulse Oximetry 94 91 92 Oxygen Delivery Me thod Oxygen Flow Rate 12/29/24 18:15 Temperature Pulse Rate 88 Pulse Rate [Right Pulse Oximeter] Respiratory Rate Blood Pressure Blood Pressure [Ri ght Upper Arm] Pulse Oximetry 91 Oxygen Delivery Me thod Oxygen Flow Rate Documenting provider has reviewed patient's vital signs: yes Course Course ED Course: At this time patient presents with known COVID, increasing oxygen needs with hypoxia. Patient will likely need to be admitted to the hospital. Will keep oxygen in place an add chest x-ray, CBC, comprehensive, CRP, troponin. Also obtain x-ray of the right hip and femur. Reevaluation(s) Reevaluation #1: Patient has remained stable in the ED. Troponin at 0.04 so will repeat that at this time. No chest pain noted. CRP is elevated at 24.7 and LFTs are elevated with a AST of 457 and ALT of 96. There is a leukocytosis at 16.43. Vital Signs Vital signs: Initial Vital Signs Temperature 100.9 F H 12/29/24 14:50 Temperature Source Temporal Artery Scan 12/29/24 14:50 Pulse Rate 93 12/29/24 14:50 Pulse Rhythm Regular 12/29/24 14:50 Pulse Strength 3+ Normal 12/29/24 14:50 Respiratory Rate 28 H 12/29/24 14:50 Blood Pressure 132/63 12/29/24 14:50 Blood Pressure Mean 86 12/29/24 14:50 Blood Pressure Position Semi-Fowlers 12/29/24 14:50 Pulse Oximetry 90 12/29/24 14:50 Oxygen Delivery Method Nasal Cannula 12/29/24 14:50 Oxygen Flow Rate 2 12/29/24 14:50 Vital Signs Temperature 100.9 F H 12/29/24 14:50 Pulse Rate 93 12/29/24 14:50 Respiratory Rate 28 H 12/29/24 14:50 Blood Pressure 132/63 12/29/24 14:50 Pulse Oximetry 90 12/29/24 14:50 Oxygen Delivery Method Nasal Cannula 12/29/24 14:50 Oxygen Flow Rate 2 12/29/24 14:50 Temperature 100.9 F H 12/29/24 14:50 Pulse Rate 87 12/29/24 18:30 Respiratory Rate 22 12/29/24 17:29 Blood Pressure 118/62 12/29/24 16:30 Pulse Oximetry 91 12/29/24 18:30 Oxygen Delivery Method Nasal Cannula 12/29/24 17:30 Oxygen Flow Rate 1 12/29/24 17:30 MDM - Weakness MDM Narrative Medical decision making narrative: 1. COVID-patient had 1 dose of Paxlovid but does not take any doses today secondary to diarrhea. Onset of symptoms 12/27/2024. Chest x-ray shows increasing left lower lung space disease. 2. Acute respiratory failure with hypoxia-patient noted to be hypoxic upon presentation with EMS at 85% but improved with nasal cannula oxygen. Here in the emergency room oxygen levels improved with nasal cannula oxygen. We did remove oxygen and patient dropped to 86% once again and thus oxygen was reapplied. 3. Elevated LFTs-no abdominal tenderness. After discussion with hospitalist does suggest chest abdomen and pelvis CT prior to move to the floor. We do not have to wait for those results before the move. 4. Right leg pain-noted on the x-ray was 1.8 centimeter focus of mineralization adjacent to the right ischial tuberosity likely reflecting hydroxyapatite deposition at the right hamstring tendon origin. Suggested ortho consult for a.m.. 5. [id number] admission under the care of hospitalist Dr. Stubbs. Medical Records Attestation: I reviewed the patient's medical records. Lab Data Attestation: I reviewed the patient's lab results. Labs: Lab Results 12/29/24 12/29/24 12/29/24 Range/Units 15:21 16:00 17:38 WBC 16.43 H (4.50-11.00) K/uL RBC 4.42 (4.30-5.90) m/uL Hgb 13.9 (13.5-17.5) gm/dL Hct 42.1 (37.0-53.0) % MCV 95 (80-100) fL MCH 31 (26-34) pg MCHC 33 (32-36) gm/dL RDW Coeff of Farhana 13.8 (11.5-15.5) % Plt Count 188 (140-440) K/uL Neut % (Auto) 85.3 H (42.0-72.0) % Lymph % (Auto) 5.3 L (20-44) % Arthur % (Auto) 8.5 (0.0-11.0) % Eos % (Auto) 0.0 (0.0-7.0) % Baso % (Auto) 0.1 (0.0-3.0) % Neut # (Auto) 14.00 H (1.7-7.0) K/uL Lymph # (Auto) 0.90 (0.90-2.90) K/uL Arthur # (Auto) 1.40 H (0.00-0.90) K/UL Eos # (Auto) 0.00 (0.00-0.50) K/uL Baso # (Auto) 0.00 (0.00-0.30) K/uL Abs Immat Gran (auto) 0.10 (0.00-0.30) K/uL Imm/Tot Granulo (auto) 0.8 % Sodium 137 (135-149) mmol/L Potassium 4.3 (3.6-5.1) mmol/L Chloride 102 (96-114) mmol/L Carbon Dioxide 26 (20-32) mmol/L Anion Gap 9 (7-15) mEq/L BUN 40 H (7-30) mg/dL Creatinine 1.5 (0.5-1.5) mg/dL Estimated Creat Clear 34.70 Estimated GFR 45 ml/min Glucose 130 H (60-115) mg/dL Calcium 8.3 L (8.4-10.6) mg/dL Total Bilirubin 0.8 (0.1-1.5) mg/dL AST 457 H (12-35) U/L ALT 96 H (4-50) U/L Alkaline Phosphatase 68 (40-150) U/L C-Reactive Protein 24.7 H (0.5-1.0) mg/dL Total Protein 7.8 (6.0-8.3) g/dL Albumin 4.2 (3.3-5.0) g/dL POC Troponin I 0.04 0.04 (0.01-0.04) ng/ml Imaging Data CT scan - chest: Attestation: I have reviewed the pertinent imaging results. My impression: I do not note any large infiltrates or widened mediastinum Radiologist's impression: Lungs: Worsening left basilar airspace disease/atelectasis. Pleura: Stable pleural spaces. Heart and Mediastinum: Stable cardiomediastinal silhouette and great vessels. Bones: Stable osseous structures. CT Chest/Ab/Pelvis: Radiologist's impression: Pending Right leg and femur x-ray: Attestation: I have reviewed the pertinent imaging results. My impression: No obvious bony abnormality Radiologist's impression: Findings/impression: No acute fracture or malalignment. The hips, pubic symphysis, and sacroiliac joints are congruent with mild degenerative changes. There is an approximately 1.8 centimeter focus of mineralization adjacent to the right ischial tuberosity likely reflecting hydroxyapatite deposition at the right hamstring tendon origin, a potential pain generator. Partially imaged linear calcifications within the posterior aspect of the right thigh. Mild enthesopathy about the pelvis. No fracture, erosive change or periosteal reaction. Longitudinal ossific density in the posterior soft tissues of the thigh. Negative right hip. 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 IMPRESSION: Negative right femur ECG Data Attestation: I personally reviewed and interpreted this ECG as follows: Interpretation: EKG by my read shows sinus rhythm at a rate 94. No acute ST or T-wave changes are noted. QT and IN intervals within normal limits. Critical Care Time Critical Care Time Critical Care Time: Yes Attestation: The patient required my highest level preparedness to intervene emergently and I personally spent this critical care time directly and personally managing the patient. This critical care time included: Obtaining a history; Examining the patient; Pulse oximetry; Ordering and reviewing of studies; Arranging urgent treatment with development of a management plan; Evaluation of patients response to treatment; Frequent reassessment discussions with other providers. This critical care time was performed to assess and manage the high probability of imminent life-threatening deterioration that could result in multiorgan failure. It was exclusive of separate billable procedures and treating other patients and teaching time. Total Critical Care Time in Minutes: 60 Discharge Plan Discharge Clinical Impression: COVID-19, Elevated LFTs, Leg pain, right, Acute hypoxemic respiratory failure due to COVID-19 Patient Disposition: Admitted As Inpatient Condition: Improved
--- NOTE | 2024-12-29 15:21 | CRLHL7_ITS ---
For Patients: As a result of the Cures Act, medical imaging exams and procedure reports are released immediately into your electronic medical record. You may view this report before your referring provider. If you have questions, please contact your health care provider. INDICATION: COVID with increasing oxygen needs TECHNIQUE: Chest 1 views. COMPARISON: Previous day. FINDINGS/IMPRESSION: Lungs: Worsening left basilar airspace disease/atelectasis. Pleura: Stable pleural spaces. Heart and Mediastinum: Stable cardiomediastinal silhouette and great vessels. Bones: Stable osseous structures. Dictated by Maximo Ring MD @ 12/29/2024 4:07:37 PM (Electronically Signed)
--- NOTE | 2024-12-29 15:21 | CRLHL7_ITS ---
For Patients: As a result of the Century Cures Act, medical imaging exams and procedure reports are released immediately into your electronic medical record. You may view this report before your referring provider. If you have questions, please contact your health care provider. INDICATION: Right femur pain TECHNIQUE: AP and lateral views of the right femur, 4 images COMPARISON: None FINDINGS: No fracture, erosive change or periosteal reaction. Longitudinal ossific density in the posterior soft tissues of the thigh. Negative right hip. 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 IMPRESSION: Negative right femur Dictated by Markos Jacques MD @ 12/29/2024 4:10:52 PM (Electronically Signed)
--- NOTE | 2024-12-29 15:21 | XR_ITS ---
Patient: JONNY RANDALL Facility:?[facility] Patient ID:?[id number] Site Patient ID:?[id number]. Site :?[id number] Study:?XRay-Hip Right 2V-12/29/2024 3:53:37 PM Ordering Physician:?Vivek Hinson Final Report: Indication: Right hip pain Technique: Three images of the pelvis and right hip Comparison: None Findings/impression: No acute fracture or malalignment. The hips, pubic symphysis, and sacroiliac joints are congruent with mild degenerative changes. There is an approximately 1.8 centimeter focus of mineralization adjacent to the right ischial tuberosity likely reflecting hydroxyapatite deposition at the right hamstring tendon origin, a potential pain generator. Partially imaged linear calcifications within the posterior aspect of the right thigh. Mild enthesopathy about the pelvis. Dictated by Monet Isaacs MD @ 12/29/2024 4:10:07 PM (Electronic Signature)
[2024-12-29 16:07] LABS: Hematocrit* 42.1 % (37.0-53.0); Hemoglobin* 13.9 gm/dL (13.5-17.5); Immature Granulocytes Pct Auto 0.8 %; Mean Corpuscular HGB Conc 33 gm/dL (32-36); Mean Corpuscular Hemoglobin 31 pg (26-34); Mean Corpuscular Volume 95 fL (80-100); RDW Coefficient of Variation % 13.8 % (11.5-15.5); Red Blood Count* 4.42 m/uL (4.30-5.90); White Blood Count* 16.43 K/uL (4.50-11.00)
[2024-12-29 16:10] LABS: Immature Granulocytes Abs Auto 0.10 K/uL (0.00-0.30); Lymphocytes Absolute Auto 0.90 K/uL (0.90-2.90); Slide Review Reflex No
[2024-12-29 16:20] LABS: Albumin* 4.2 g/dL (3.3-5.0); Chloride* 102 mmol/L (96-114); Potassium* 4.3 mmol/L (3.6-5.1); Sodium* 137 mmol/L (135-149)
[2024-12-29 16:21] LABS: Troponin, Point-of-Care* 0.04 ng/ml (0.01-0.04)
[2024-12-29 16:23] LABS: Alanine Aminotransferase* 96 U/L (4-50); Alkaline Phosphatase* 68 U/L (40-150); Anion Gap 9 mEq/L (7-15); Aspartate Amino Transferase* 457 U/L (12-35); Bilirubin Total* 0.8 mg/dL (0.1-1.5); Blood Urea Nitrogen* 40 mg/dL (7-30); Carbon Dioxide* 26 mmol/L (20-32); Creatinine* 1.5 mg/dL (0.5-1.5); Est. Creatinine Clearance* 34.70; Estimated Glomerular Filt Rate 45 ml/min; Total Protein* 7.8 g/dL (6.0-8.3)
[2024-12-29 16:24] LABS: Calcium* 8.3 mg/dL (8.4-10.6); Glucose* 130 mg/dL (60-115)
--- NOTE | 2024-12-29 17:39 | CRLHL7_ITS ---
For Patients: As a result of the Century Cures Act, medical imaging exams and procedure reports are released immediately into your electronic medical record. You may view this report before your referring provider. If you have questions, please contact your health care provider. INDICATION: Elevated LFTs, COVID TECHNIQUE: CT chest, abdomen and pelvis acquired 81cc Isovue 370 IV contrast. COMPARISON: Chest CT 04/23/2024 FINDINGS: CHEST: Cardiovascular structures: Heart size is normal. Thoracic aorta and main pulmonary artery are normal in caliber. Moderate coronary artery calcifications Mediastinum and betty: No mass or adenopathy. Lungs and pleura: New scattered ground-glass opacities within the right upper lobe, lingula and right lower lobe. Consolidative lobular opacity in the left lower lobe. Bronchial wall thickening with slight narrowing of the left lower lobe subsegmental bronchi. Increased left basal now solid nodule with resolved cystic component measuring 1.2 cm (3/75). Chest wall and axilla: Enlarged right hilar lymph node measuring 1.6 cm. Bones: No suspicious bone lesions. Multilevel degenerative change of the thoracic spine ABDOMEN AND PELVIS: Liver: Scattered hepatic hypoattenuating lesions measuring up to 1.5 cm in the left hepatic lobe are too small to characterize, although may represent cysts or hemangiomas in the absence of patient risk factors. Gallbladder and bile ducts: Unremarkable. Pancreas: Unremarkable. Spleen: Unremarkable. Adrenal glands: Unremarkable. Kidneys: Superior left renal pole cyst measuring 3.3 cm. GI tract: Unremarkable. The appendix is not well seen and may be surgically absent Vascular structures: Unremarkable. Lymph nodes: Unremarkable. Peritoneum/Retroperitoneum/Abdominal Wall: Unremarkable. No free air or significant free fluid. Pelvic Organs: Unremarkable. Bones and superficial soft tissues: Multilevel degenerative change of the thoracolumbar spine. IMPRESSION: 1. Scattered ground-glass opacities and consolidative lobular opacity in the left lower lobe are compatible with multifocal pneumonia, in keeping with the patient`s diagnosis of COVID. New bronchial wall thickening with slight narrowing of the left lower lobe subsegmental bronchi. 2. Increased left basal pulmonary solid nodule with resolved cystic component is indeterminate for infectious/inflammatory versus malignant etiology. 2. Enlarged right hilar lymph node is likely reactive. 3. No acute findings in the abdomen or pelvis 4. Scattered hepatic hypoattenuating lesions are difficult to characterize due to their small size, however may be benign in the absence of patient risk factors Please note that all CT scans at this facility use dose modulation, iterative reconstruction, and/or weight-based dosing when appropriate to reduce radiation dose to as low as reasonably achievable. Dictated by Kayla Conteh MD @ 12/29/2024 7:52:26 PM (Electronically Signed)
[2024-12-29 18:52] LABS: Troponin, Point-of-Care* 0.04 ng/ml (0.01-0.04)
--- NOTE | 2024-12-29 19:14 | P.IMHP_ITS ---
Assessment and Plan Assessment and plan (1) Acute hypoxemic respiratory failure due to COVID-19: Problem comment: - supplemental oxygen as tolerated, RT referral - history of reaction to NSAIDs (rash) so will monitor for now, consider initiation of Dexamethasone pending clinical course Status: Acute (2) Left lower lobe pneumonia: Problem comment: - bilateral GGOs + LLL consolidation on 12.29 imaging - also noted to have leukocytosis and fever; will cover for superimposed CAP with Azithromycin and Ceftriaxone Status: Acute (3) Elevated LFTs: Problem comment: - 12/29: AST 457 (was 62 on 12/28), ALT 96 (was 25 on 12/28) - ddx: shock liver, congestive hepatopathy from PNA/COVID - reassuring imaging 12/29 Status: Acute (4) SAMUEL (acute kidney injury): Problem comment: - on admission 12/29, Creatinine is 1.5 (was 1.0 on 12/28, 0.7 in April 2024) - presumably prerenal from acute illness/decreased po intake - tolerating oral intake/fluids on 12/29 - follow Is and Os, follow creatinine Status: Acute (5) Mass of left lung: Problem comment: - noted on imaging 12/29 (malignancy vs infectious) - patient aware; outpatient f/u Status: Acute (6) Weakness: Problem comment: - 2/2 COVID - will ask therapy teams to evaluate Status: Acute Plan - per above - Lovenox for ppx - requires inpatient admission given acute hypoxia in the setting of COVID + CAP requiring supplemental oxygen, acute liver injury, acute kidney injury Hospitalist- H&P: HPI History of Present Illness Date Seen: 12/29/24 Chief complaint: weakness has COVID Narrative: Chester Mojica is a 89 year old male who presented to the ER for severe weakness in the setting of known COVID infection. Seen in ER yesterday and diagnosed with COVID; at that time was 93-96% on RA and discharged home with Paxlovid. Took one dose and had severe diarrhea (nonbloody), hasn't taken any further doses. This morning he was more weak, unable to complete ADLs. He has not fallen, but feels like he could. Over the course of the last 2 days, has had pain in his left posterior hip/hamstring, describes this as a shooting pain that comes and goes. No injury or inciting incident, no other associated symptoms. ER Course and Findings: - temperature 100.9, WBC 16 with PMN predominance - O2 saturation of 85-86% on RA, improved to 90-93% with supplemental oxygen - HR 80s-90s - creatinine 1.5 (was 1.0 yesterday, was 0.7 in April 2024) - AST 457 (was 62 yesterday), ALT 96 (was 25 yesterday) - CT C/A/P: Scattered GGOs + opacity in LLL, L pulmonary nodule Review of Systems Status of ROS: Reports: 10 or more systems reviewed and unremarkable except as noted in History and below Narrative: - episode of significant diarrhea after taking one dose of Paxlovid - cough, no chest pain Medical Decision Making Medical Decision Making Code Status: DNR/DNI During This Stay, Who Would You Like To Make Decisions For You In The Event You Are Unable To Make Them For Yourself?: Angy Relevant situational information: 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 to Angy. Nonsmoker, no ETOH. DNR/DNI. Smoking Status: Never smoker Do you use any of these nicotine containing products: None How often do you have a drink containing alcohol: never How often do you have six or more drinks on one occasion: Never AUDIT-C Alcohol total score: 0 Non-prescribed substance use: denies use Meds Home Medications and Allergies Home Medications ?Medication ?Instructions ?Recorded ?Confirmed ?Type nirmatrelvir 150 mg (10)-ritonavir See Rx Instructions PO .COMPLEX 12/28/2412/15 Rx 100 mg (10) tablets in a dose pack #20 ea (Paxlovid) Home Medication Comments: Takes no regular medications Allergies Allergy/AdvReac Type Severity Reaction Status Date / Time NSAIDS (Non-Steroidal Allergy Unknown Verified 12/29/24 18:53 Anti-Inflamma Exam Narrative: Exam Narrative: GEN: Alert and oriented, nontoxic HEENT: Normal external ears, EOMIs bilaterally, no scleral icterus CV: RRR, No concerning murmurs R: No wheezing, bibasilar rhonchi L>R Ext: No concerning edema of extremities, full ROM at R hip/knee/ankle Skin: No concerning skin lesions or rashes on exposed skin Neuro: Nonfocal Psych: Appropriate Const: Vital Signs, click to edit/add: Vital Signs - 24 hr 12/29/24 14:50 12/29/24 14:59 12/29/24 15:00 Temperature 100.9 F H Pulse Rate 90 89 Pulse Rate [Right Pulse Oximeter] 93 Respiratory Rate 28 H Blood Pressure Blood Pressure [Ri ght Upper Arm] 132/63 Pulse Oximetry 90 90 89 Oxygen Delivery Me thod Nasal Cannula Oxygen Flow Rate 2 12/29/24 15:15 12/29/24 15:49 12/29/24 16:00 Temperature Pulse Rate 96 90 94 Pulse Rate [Right Pulse Oximeter] Respiratory Rate Blood Pressure Blood Pressure [Ri ght Upper Arm] Pulse Oximetry 92 94 88 Oxygen Delivery Me thod Oxygen Flow Rate 12/29/24 16:15 12/29/24 16:29 12/29/24 16:30 Temperature Pulse Rate 86 87 91 Pulse Rate [Right Pulse Oximeter] Respiratory Rate 20 22 Blood Pressure 118/62 118/62 Blood Pressure [Ri ght Upper Arm] Pulse Oximetry 96 94 96 Oxygen Delivery Me thod Nasal Cannula Room Air Oxygen Flow Rate 1 12/29/24 16:30 12/29/24 16:45 12/29/24 17:00 Temperature Pulse Rate 93 84 87 Pulse Rate [Right Pulse Oximeter] Respiratory Rate Blood Pressure Blood Pressure [Ri ght Upper Arm] Pulse Oximetry 97 92 90 Oxygen Delivery Me thod Oxygen Flow Rate 12/29/24 17:15 12/29/24 17:29 12/29/24 17:30 Temperature Pulse Rate 89 Pulse Rate [Right Pulse Oximeter] Respiratory Rate 22 Blood Pressure Blood Pressure [Ri ght Upper Arm] Pulse Oximetry 86 L 94 Oxygen Delivery Me thod Room Air Nasal Cannula Oxygen Flow Rate 1 12/29/24 17:30 12/29/24 17:45 12/29/24 18:00 Temperature Pulse Rate 86 88 82 Pulse Rate [Right Pulse Oximeter] Respiratory Rate Blood Pressure Blood Pressure [Ri ght Upper Arm] Pulse Oximetry 94 91 92 Oxygen Delivery Me thod Oxygen Flow Rate 12/29/24 18:15 12/29/24 18:30 Temperature Pulse Rate 88 87 Pulse Rate [Right Pulse Oximeter] Respiratory Rate Blood Pressure Blood Pressure [Ri ght Upper Arm] Pulse Oximetry 91 91 Oxygen Delivery Me thod Oxygen Flow Rate Hospitalist - H&P: Result Labs Labs: Short CBC 12/29/24 Range/Units 16:00 WBC 16.43 H (4.50-11.00) K/uL Hgb 13.9 (13.5-17.5) gm/dL Hct 42.1 (37.0-53.0) % Plt Count 188 (140-440) K/uL BMP 12/29/24 16:00 Sodium 137 Potassium 4.3 Chloride 102 Carbon Dioxide 26 BUN 40 H Creatinine 1.5 Glucose 130 H Calcium 8.3 L Liver Function 12/29/24 Range/Units 16:00 Total Bilirubin 0.8 (0.1-1.5) mg/dL AST 457 H (12-35) U/L ALT 96 H (4-50) U/L Alkaline Phosphatase 68 (40-150) U/L Albumin 4.2 (3.3-5.0) g/dL
[2024-12-29] MEDS: cefTRIAXone 1 GM in 0.9 % SODIUM CHLORIDE Mini-bag 100 ML IVPB (21:04)
[2024-12-29] MEDS: SODIUM CHLORIDE 0.9 % (FLUSH) 10 ML SYRINGE 5 ML IVF (21:04)
[2024-12-29] MEDS: AZITHROMYCIN 250 MG TABLET 500 MG PO (21:33)
[2024-12-30] VITALS (8 sets, daily range): BP systolic 99–122; BP diastolic 57–63; PULSE 64–86; RESP 16–24; TEMP 36.4–36.8; O2SAT 91–100
[2024-12-30 06:28] LABS: Hematocrit* 37.4 % (37.0-53.0); Hemoglobin* 12.4 gm/dL (13.5-17.5); Immature Granulocytes Pct Auto 0.4 %; Mean Corpuscular HGB Conc 33 gm/dL (32-36); Mean Corpuscular Hemoglobin 31 pg (26-34); Mean Corpuscular Volume 94 fL (80-100); RDW Coefficient of Variation % 13.9 % (11.5-15.5); Red Blood Count* 3.97 m/uL (4.30-5.90); White Blood Count* 14.13 K/uL (4.50-11.00)
[2024-12-30 06:31] LABS: Immature Granulocytes Abs Auto 0.10 K/uL (0.00-0.30); Lymphocytes Absolute Auto 1.10 K/uL (0.90-2.90)
[2024-12-30 06:32] LABS: Slide Review Reflex No
[2024-12-30 06:37] LABS: Chloride* 102 mmol/L (96-114)
[2024-12-30 06:38] LABS: Albumin* 3.5 g/dL (3.3-5.0); Potassium* 3.7 mmol/L (3.6-5.1); Sodium* 135 mmol/L (135-149)
[2024-12-30 06:41] LABS: Alanine Aminotransferase* 83 U/L (4-50); Alkaline Phosphatase* 66 U/L (40-150); Anion Gap 8 mEq/L (7-15); Aspartate Amino Transferase* 316 U/L (12-35); Bilirubin Total* 0.8 mg/dL (0.1-1.5); Blood Urea Nitrogen* 43 mg/dL (7-30); Calcium* 7.8 mg/dL (8.4-10.6); Carbon Dioxide* 25 mmol/L (20-32); Creatinine* 1.3 mg/dL (0.5-1.5); Est. Creatinine Clearance* 40.03; Estimated Glomerular Filt Rate 53 ml/min; Glucose* 102 mg/dL (60-115); Total Protein* 6.8 g/dL (6.0-8.3)
--- NOTE | 2024-12-30 07:04 | PC.NURSE ---
Patient brought to floor around [address] scan with a diagnosis of COVID. Mentation has been fully alert and oriented. Weak of strength. They have had great difficulty with getting into a sitting position and then to a standing position. Unable to flex his lower legs to sit on a toilet. Ambulation has been very difficult.?I have assisted the patient to urinate using a urinal. Breathing has been stable. He does have a cough. It sounded very wet on shift start but sounded vp research by shift?s end. Using 1L via NC to keep oxygenation above 90 while sleeping. Sitting at around 90 without O2 while awake. One instance of documented quarantine breach during their stay by a staff member. The patient was notified at the time of the event. No other major developments overnight. ?They appear medically stable while in our care but feeble of strength. ?
[2024-12-30] MEDS: SODIUM CHLORIDE 0.9 % (FLUSH) 10 ML SYRINGE 5 ML IVF ×2 (08:11→20:47)
--- NOTE | 2024-12-30 09:46 | P.IMPN_ITS ---
Assessment and Plan Assessment and plan (1) COVID-19: Problem comment: Initially diagnosed and treated with Paxlovid in outpatient setting, not tolerated, increasing weakness Initially hypoxic, resolved, currently on room air. No dexamethasone SAMUEL on admission, no remdesivir Weakness - PT and OT Status: Acute (2) Left lower lobe pneumonia: Problem comment: - bilateral GGOs + LLL consolidation on 12.29 imaging - also noted to have leukocytosis and fever; will cover for superimposed CAP with Azithromycin and Ceftriaxone Status: Acute (3) Elevated LFTs: Problem comment: - 12/29: AST 457 (was 62 on 12/28), ALT 96 (was 25 on 12/28) - downtrending - ddx: shock liver, congestive hepatopathy from PNA/COVID - reassuring imaging 12/29 Status: Acute (4) SAMUEL (acute kidney injury): Problem comment: - on admission 12/29, Creatinine is 1.5 (was 1.0 on 12/28, 0.7 in April 2024) - presumably prerenal from acute illness/decreased po intake - tolerating oral intake/fluids on 12/29 - follow Is and Os, follow creatinine - improved to 1.3 Status: Acute (5) Mass of left lung: Problem comment: - noted on imaging 12/29 (malignancy vs infectious) - patient aware; outpatient f/u Status: Acute (6) Weakness: Problem comment: - 2/2 COVID pneumonia - PT/OT consults with plan to return home if able Status: Acute (7) Leg pain, right: Problem comment: RESOLVED Xray shows there is an approximately 1.8 centimeter focus of mineralization adjacent to the right ischial tuberosity likely reflecting hydroxyapatite deposition at the right hamstring tendon origin, a potential pain generator. Outpatient follow up with PCP if returns or persists Status: Acute (8) Acute hypoxemic respiratory failure due to COVID-19: Problem comment: RESOLVED, no longer requiring oxygen - supplemental oxygen as tolerated, RT referral - history of reaction to NSAIDs (rash) so will monitor for now, consider initiation of Dexamethasone pending clinical course Status: Acute Plan Goal to return home, possible discharge 1-2 days Total Time Spent Total Time Spent: Today I spent 45 minutes seeing the patient, reviewing Expanse and EPIC notes/diagnostics, discussing the care plan with our care time that includes social work, PT/OT, pharmacy, RT, fdc and documenting my impressions and plan in the medical record. Subjective Date Seen: 12/30/24 Interval history: Patient is seen sitting up in a chair this morning, daughter is at bedside. Feeling a little better today. Able to get himself out of bed, standby assist, using a walker to get to the chair. No right leg pain. Appetite has already improved. Last fever was 2:00 p.m. yesterday. Denies headache or dizziness. Denies chest pain or shortness of breath. Has been weaned to room air. Creatinine 1.3, previously 1.5 WBC and LFTs trending down On room air Continue antibiotics for pneumonia PT/OT for weakness. Lives with in their own home. She is not able to care for him. Exam Narrative: Exam Narrative: PHYSICAL EXAM General: Pleasant, conversant, NAD HEENT: Normocephalic, atraumatic, sclera white, EOMI, oral mucosa moist Cardiovascular: RRR, S1S2. No pitting edema Pulmonary: Mild congestion. No dyspnea on room air Abdominal: Soft, nondistended, NTTP Neurological: Alert, answering questions appropriately, cranial nerves intact, no focal findings Extremities: No gross joint deformity or swelling. AROMI. Neurovascularly intact Skin: Warm, dry. Const: Vital Signs, click to edit/add: Vital Signs - 24 hr 12/29/24 14:50 12/29/24 14:59 12/29/24 15:00 Temperature 100.9 F H Pulse Rate 90 89 Pulse Rate [Right Pulse Oximeter] 93 Respiratory Rate 28 H Blood Pressure Blood Pressure [Le ft Arm] Blood Pressure [Ri ght Upper Arm] 132/63 Pulse Oximetry 90 90 89 Oxygen Delivery Me thod Nasal Cannula Oxygen Flow Rate 2 12/29/24 15:15 12/29/24 15:49 12/29/24 16:00 Temperature Pulse Rate 96 90 94 Pulse Rate [Right Pulse Oximeter] Respiratory Rate Blood Pressure Blood Pressure [Le ft Arm] Blood Pressure [Ri ght Upper Arm] Pulse Oximetry 92 94 88 Oxygen Delivery Me thod Oxygen Flow Rate 12/29/24 16:15 12/29/24 16:29 12/29/24 16:30 Temperature Pulse Rate 86 87 91 Pulse Rate [Right Pulse Oximeter] Respiratory Rate 20 22 Blood Pressure 118/62 118/62 Blood Pressure [Le ft Arm] Blood Pressure [Ri ght Upper Arm] Pulse Oximetry 96 94 96 Oxygen Delivery Me thod Nasal Cannula Room Air Oxygen Flow Rate 1 12/29/24 16:30 12/29/24 16:45 12/29/24 17:00 Temperature Pulse Rate 93 84 87 Pulse Rate [Right Pulse Oximeter] Respiratory Rate Blood Pressure Blood Pressure [Le ft Arm] Blood Pressure [Ri ght Upper Arm] Pulse Oximetry 97 92 90 Oxygen Delivery Me thod Oxygen Flow Rate 12/29/24 17:15 12/29/24 17:29 12/29/24 17:30 Temperature Pulse Rate 89 Pulse Rate [Right Pulse Oximeter] Respiratory Rate 22 Blood Pressure Blood Pressure [Le ft Arm] Blood Pressure [Ri ght Upper Arm] Pulse Oximetry 86 L 94 Oxygen Delivery Me thod Room Air Nasal Cannula Oxygen Flow Rate 1 12/29/24 17:30 12/29/24 17:45 12/29/24 18:00 Temperature Pulse Rate 86 88 82 Pulse Rate [Right Pulse Oximeter] Respiratory Rate Blood Pressure Blood Pressure [Le ft Arm] Blood Pressure [Ri ght Upper Arm] Pulse Oximetry 94 91 92 Oxygen Delivery Me thod Oxygen Flow Rate 12/29/24 18:15 12/29/24 18:30 12/29/24 19:22 Temperature Pulse Rate 88 87 Pulse Rate [Right Pulse Oximeter] Respiratory Rate 16 Blood Pressure Blood Pressure [Le ft Arm] Blood Pressure [Ri ght Upper Arm] Pulse Oximetry 91 91 94 Oxygen Delivery Me thod Nasal Cannula Oxygen Flow Rate 2 12/29/24 19:22 12/29/24 21:45 12/29/24 22:09 Temperature Pulse Rate 86 Pulse Rate [Right Pulse Oximeter] 76 Respiratory Rate 16 16 Blood Pressure Blood Pressure [Le ft Arm] 128/64 Blood Pressure [Ri ght Upper Arm] Pulse Oximetry 94 94 Oxygen Delivery Me thod Nasal Cannula Nasal Cannula Oxygen Flow Rate 2 2 12/30/24 02:56 12/30/24 06:39 12/30/24 08:06 Temperature 98.2 F Pulse Rate 79 Pulse Rate [Right Pulse Oximeter] 86 Respiratory Rate 16 16 Blood Pressure Blood Pressure [Le ft Arm] 114/62 Blood Pressure [Ri ght Upper Arm] Pulse Oximetry 96 96 Oxygen Delivery Me thod Room Air Room Air Oxygen Flow Rate 2 12/30/24 08:06 12/30/24 08:23 Temperature 98.0 F Pulse Rate Pulse Rate [Right Pulse Oximeter] 81 81 Respiratory Rate 16 16 Blood Pressure Blood Pressure [Le ft Arm] 109/57 L Blood Pressure [Ri ght Upper Arm] Pulse Oximetry 91 Oxygen Delivery Me thod Room Air Oxygen Flow Rate Labs Labs: Laboratory Results - last 24 hr 12/29/24 12/29/24 12/29/24 15:21 16:00 17:38 WBC 16.43 H RBC 4.42 Hgb 13.9 Hct 42.1 MCV 95 MCH 31 MCHC 33 RDW Coeff of Farhana 13.8 Plt Count 188 Neut % (Auto) 85.3 H Lymph % (Auto) 5.3 L Sunflower % (Auto) 8.5 Eos % (Auto) 0.0 Baso % (Auto) 0.1 Neut # (Auto) 14.00 H Lymph # (Auto) 0.90 Sunflower # (Auto) 1.40 H Eos # (Auto) 0.00 Baso # (Auto) 0.00 Abs Immat Gran (auto) 0.10 Imm/Tot Granulo (auto) 0.8 Sodium 137 Potassium 4.3 Chloride 102 Carbon Dioxide 26 Anion Gap 9 BUN 40 H Creatinine 1.5 Estimated Creat Clear 34.70 Estimated GFR 45 Glucose 130 H Calcium 8.3 L Total Bilirubin 0.8 AST 457 H ALT 96 H Alkaline Phosphatase 68 C-Reactive Protein 24.7 H Total Protein 7.8 Albumin 4.2 POC Troponin I 0.04 0.04 12/30/24 06:13 WBC 14.13 H RBC 3.97 L Hgb 12.4 L Hct 37.4 MCV 94 MCH 31 MCHC 33 RDW Coeff of Farhana 13.9 Plt Count 195 Neut % (Auto) 82.8 H Lymph % (Auto) 7.9 L Sunflower % (Auto) 8.8 Eos % (Auto) 0.0 Baso % (Auto) 0.1 Neut # (Auto) 11.70 H Lymph # (Auto) 1.10 Sunflower # (Auto) 1.20 H Eos # (Auto) 0.00 Baso # (Auto) 0.00 Abs Immat Gran (auto) 0.10 Imm/Tot Granulo (auto) 0.4 Sodium 135 Potassium 3.7 Chloride 102 Carbon Dioxide 25 Anion Gap 8 BUN 43 H Creatinine 1.3 Estimated Creat Clear 40.03 Estimated GFR 53 Glucose 102 Calcium 7.8 L Total Bilirubin 0.8 AST 316 H ALT 83 H Alkaline Phosphatase 66 C-Reactive Protein 25.6 H Total Protein 6.8 Albumin 3.5 POC Troponin I
--- NOTE | 2024-12-30 16:20 | PC.NURSE ---
end of shift. pt has been pleasant. he is alert and orientated x4. no pain., he is eating, drinking and voiding. he is up with SBA and a walker/ SL is patent. he is on covid precautions.
[2024-12-30] MEDS: ACETAMINOPHEN 325 MG TABLET 975 MG PO (18:17)
--- NOTE | 2024-12-30 20:04 | PC.NURSE ---
End of shift [id number] - RN took over pt care at approximately 1500. Pt alert, oriented, cooperative. Up with standby assistance and walker/gait belt. Tolerating RA and regular diet/fluids. Denies pain, reports general soreness. Given medication per MAR to improve pt comfort. Pt reported to RN feeling very tired and wanting to sleep. Encouraged to eat dinner up in chair, pt agreeable. Appears to be resting comfortably in chair at end of shift with call light within reach.
[2024-12-30] MEDS: ENOXAPARIN 30 MG/0.3ML INJ SUBCUT (20:46)
[2024-12-30] MEDS: cefTRIAXone 1 GM in 0.9 % SODIUM CHLORIDE Mini-bag 100 ML IVPB (20:47)
[2024-12-30] MEDS: AZITHROMYCIN 250 MG TABLET 500 MG PO (20:48)
[2024-12-31 03:00] VITALS: BP 113/71; PULSE 74; RESP 18; TEMP 36.3; O2SAT 97
--- NOTE | 2024-12-31 06:59 | PC.NURSE ---
End of shift report [id number]: AxOx4. VSS. Afebrile. Denies pain. Patient on RA overnight. Pt ambulates SBA with walker to bathroom. Pt is resting in bed, call light within reach.?
[2024-12-31 07:00] VITALS: BP 114/77; PULSE 64; PULSE 76; RESP 18; TEMP 36.5; O2SAT 100
[2024-12-31 08:42] LABS: Hematocrit* 37.9 % (37.0-53.0); Hemoglobin* 12.5 gm/dL (13.5-17.5); Immature Granulocytes Abs Auto 0.02 K/uL (0.00-0.30); Immature Granulocytes Pct Auto 0.2 %; Mean Corpuscular HGB Conc 33 gm/dL (32-36); Mean Corpuscular Hemoglobin 31 pg (26-34); Mean Corpuscular Volume 95 fL (80-100); RDW Coefficient of Variation % 14.1 % (11.5-15.5); Red Blood Count* 3.99 m/uL (4.30-5.90); White Blood Count* 9.53 K/uL (4.50-11.00)
[2024-12-31 08:46] LABS: Lymphocytes Absolute Auto 0.80 K/uL (0.90-2.90)
[2024-12-31 08:47] LABS: Slide Review Reflex No
[2024-12-31 08:53] LABS: Albumin* 3.4 g/dL (3.3-5.0); Chloride* 102 mmol/L (96-114); Potassium* 3.9 mmol/L (3.6-5.1); Sodium* 136 mmol/L (135-149)
[2024-12-31 08:55] LABS: Alanine Aminotransferase* 78 U/L (4-50); Aspartate Amino Transferase* 238 U/L (12-35); Blood Urea Nitrogen* 46 mg/dL (7-30); Creatinine* 1.1 mg/dL (0.5-1.5); Est. Creatinine Clearance* 47.31; Estimated Glomerular Filt Rate 65 ml/min
[2024-12-31 08:56] LABS: Alkaline Phosphatase* 68 U/L (40-150); Anion Gap 7 mEq/L (7-15); Bilirubin Total* 0.6 mg/dL (0.1-1.5); Calcium* 8.0 mg/dL (8.4-10.6); Carbon Dioxide* 27 mmol/L (20-32); Glucose* 105 mg/dL (60-115); Total Protein* 6.8 g/dL (6.0-8.3)
--- NOTE | 2024-12-31 09:59 | PM.DS1 ---
DS: Providers Provider Date Seen: 12/31/24 Date of admission: 12/29/24 18:26 Primary care physician: Tim Corral MD Admitting Clinician: Evelyn Stubbs MD Consults: 12/29/24 20:21 Consult to Physical Therapy [CONS] Routine Comment: Reason(s) for PT Consult:: Evaluate and Treat Any Restrictions?:: No Restrictions Comment: weakness and R hamstring pain Consult to Respiratory Therapy [CONS] Routine Comment: Reason(s) for RT Consult:: Consult Comment: COVID 12/29/24 20:23 Consult to Occupational Therapy [CONS] Routine Comment: Reason(s) for OT Consult:: Evaluate and Treat Any Restrictions?:: No Restrictions Attending Physician on discharge: EDDIE Stewart, PAKevinC Date of Discharge: 12/31/24 DS: Diagnosis Discharge Diagnosis (1) COVID-19: Status: Acute Problem details: Initially diagnosed and treated with Paxlovid in outpatient setting, not tolerated, admitted to hospital with increasing weakness. Initially hypoxic, resolved, and has remained on room air. No dexamethasone. SAMUEL on admission, no remdesivir. Evaluated by PT and OT, discharged to home to care for self with daughters support. (2) Left lower lobe pneumonia: Status: Acute Problem details: Bilateral GGOs + LLL consolidation noted on imaging 12/29/2024. Presented with leukocytosis and fever which resolved. Initiated on azithromycin and ceftriaxone. Discharged on 5 day course of doxycycline to complete antibiotic therapy. (3) Elevated LFTs: Status: Acute Problem details: On admission 12/29: AST 457 (was 62 on 12/28), ALT 96 (was 25 on 12/28). Differential diagnoses included shock liver, congestive hepatopathy from PNA/COVID. Imaging from 12/29/2024 reassuring. Trended, noted to decrease. Outpatient follow-up with PCP next week and repeat liver functions. (4) SAMUEL (acute kidney injury): Status: Acute Problem details: On admission 12/29, Creatinine is 1.5 (was 1.0 on 12/28, 0.7 in April 2024). Presumably prerenal from acute illness/decreased po intake. Improved to 1.1 on day of discharge. No remdesivir initiated. (5) Mass of left lung: Status: Acute Problem details: - noted on imaging 12/29 (malignancy vs infectious) - patient aware Outpatient follow-up with PCP for further management (6) Weakness: Status: Acute Problem details: Related to COVID pneumonia. Assessed by PT and OT, discharge to home to care for self with assistance of daughters. (7) Leg pain, right: Status: Acute Problem details: RESOLVED Xray shows there is an approximately 1.8 centimeter focus of mineralization adjacent to the right ischial tuberosity likely reflecting hydroxyapatite deposition at the right hamstring tendon origin, a potential pain generator. Outpatient follow up with PCP if returns or persists (8) Acute hypoxemic respiratory failure due to COVID-19: Status: Acute Problem details: RESOLVED, no longer requiring oxygen - supplemental oxygen as tolerated, RT referral - history of reaction to NSAIDs (rash) so will monitor for now, consider initiation of Dexamethasone pending clinical course DS: Summary Hospital Course Hospital Course: Course of care and details as noted above. Remainder of chronic medical comorbidities were monitored and managed with home medications. Status at Discharge Functional status at discharge: uses cane/walker Overall status at discharge: patient is progressing back to baseline Time Spent with Patient Time attestation: Total time spent providing and/or coordinating discharge services: Time spent: Greater than 30 minutes Exam Narrative: Exam Narrative: PHYSICAL EXAM General: Pleasant, conversant, NAD Cardiovascular: RRR. No pitting edema Pulmonary: No dyspnea on room air Neurological: Alert, answering questions appropriately Skin: Warm, dry. Const: Vital Signs, click to edit/add: Vital Signs - 24 hr 12/30/24 10:52 12/30/24 15:00 12/30/24 15:00 Temperature 98.0 F Pulse Rate 76 Pulse Rate [Right Pulse Oximeter] 73 Respiratory Rate 16 18 Blood Pressure [Le ft Arm] 103/58 L Pulse Oximetry 93 100 Oxygen Delivery Me thod Room Air Room Air 12/30/24 15:00 12/30/24 19:00 12/30/24 23:00 Temperature 98.0 F 97.7 F 97.5 F L Pulse Rate Pulse Rate [Right Pulse Oximeter] 78 73 74 Respiratory Rate 18 22 24 Blood Pressure [Le ft Arm] 122/63 99/58 L 120/62 Pulse Oximetry 100 93 96 Oxygen Delivery Me thod Room Air Room Air Room Air 12/30/24 23:00 12/30/24 23:00 12/30/24 23:00 Temperature Pulse Rate 64 Pulse Rate [Right Pulse Oximeter] 74 Respiratory Rate 24 Blood Pressure [Le ft Arm] Pulse Oximetry 96 Oxygen Delivery Me thod Room Air 12/31/24 03:00 12/31/24 07:00 12/31/24 07:00 Temperature 97.4 F L Pulse Rate 64 Pulse Rate [Right Pulse Oximeter] 74 76 Respiratory Rate 18 18 Blood Pressure [Le ft Arm] 113/71 Pulse Oximetry 97 Oxygen Delivery Me thod Room Air 12/31/24 07:00 12/31/24 07:00 Temperature 97.7 F Pulse Rate Pulse Rate [Right Pulse Oximeter] 76 Respiratory Rate 18 18 Blood Pressure [Le ft Arm] 114/77 Pulse Oximetry 100 100 Oxygen Delivery Me thod Room Air Room Air DS: Data Data Completed and Pending Labs on day of discharge: Labs from last 24 hours 12/31/24 08:34 WBC 9.53 RBC 3.99 L Hgb 12.5 L Hct 37.9 MCV 95 MCH 31 MCHC 33 RDW Coeff of Farhana 14.1 Plt Count 194 Neut % (Auto) 78.9 H Lymph % (Auto) 8.7 L Warrick % (Auto) 10.8 Eos % (Auto) 1.2 Baso % (Auto) 0.2 Neut # (Auto) 7.50 H Lymph # (Auto) 0.80 L Warrick # (Auto) 1.00 H Eos # (Auto) 0.11 Baso # (Auto) 0.02 Abs Immat Gran (auto) 0.02 Imm/Tot Granulo (auto) 0.2 Sodium 136 Potassium 3.9 Chloride 102 Carbon Dioxide 27 Anion Gap 7 BUN 46 H Creatinine 1.1 Estimated Creat Clear 47.31 Estimated GFR 65 Glucose 105 Calcium 8.0 L Total Bilirubin 0.6 AST 238 H ALT 78 H Alkaline Phosphatase 68 C-Reactive Protein 18.2 H Total Protein 6.[address] Chest/Ab/Pelvis: Attestation: I have reviewed the pertinent imaging results. Radiologist's impression: CHEST: Cardiovascular structures: Heart size is normal. Thoracic aorta and main pulmonary artery are normal in caliber. Moderate coronary artery calcifications Mediastinum and betty: No mass or adenopathy. Lungs and pleura: New scattered ground-glass opacities within the right upper lobe, lingula and right lower lobe. Consolidative lobular opacity in the left lower lobe. Bronchial wall thickening with slight narrowing of the left lower lobe subsegmental bronchi. Increased left basal now solid nodule with resolved cystic component measuring 1.2 cm (3/75). Chest wall and axilla: Enlarged right hilar lymph node measuring 1.6 cm. Bones: No suspicious bone lesions. Multilevel degenerative change of the thoracic spine ABDOMEN AND PELVIS: Liver: Scattered hepatic hypoattenuating lesions measuring up to 1.5 cm in the left hepatic lobe are too small to characterize, although may represent cysts or hemangiomas in the absence of patient risk factors. Gallbladder and bile ducts: Unremarkable. Pancreas: Unremarkable. Spleen: Unremarkable. Adrenal glands: Unremarkable. Kidneys: Superior left renal pole cyst measuring 3.3 cm. GI tract: Unremarkable. The appendix is not well seen and may be surgically absent Vascular structures: Unremarkable. Lymph nodes: Unremarkable. Peritoneum/Retroperitoneum/Abdominal Wall: Unremarkable. No free air or significant free fluid. Pelvic Organs: Unremarkable. Bones and superficial soft tissues: Multilevel degenerative change of the thoracolumbar spine. IMPRESSION: 1. Scattered ground-glass opacities and consolidative lobular opacity in the left lower lobe are compatible with multifocal pneumonia, in keeping with the patient`s diagnosis of COVID. New bronchial wall thickening with slight narrowing of the left lower lobe subsegmental bronchi. 2. Increased left basal pulmonary solid nodule with resolved cystic component is indeterminate for infectious/inflammatory versus malignant etiology. 2. Enlarged right hilar lymph node is likely reactive. 3. No acute findings in the abdomen or pelvis 4. Scattered hepatic hypoattenuating lesions are difficult to characterize due to their small size, however may be benign in the absence of patient risk factors Chest x-ray: Attestation: I have reviewed the pertinent imaging results. Radiologist's impression: FINDINGS/IMPRESSION: Lungs: Worsening left basilar airspace disease/atelectasis. Pleura: Stable pleural spaces. Heart and Mediastinum: Stable cardiomediastinal silhouette and great vessels. Bones: Stable osseous structures. Femur x-ray: Attestation: I have reviewed the pertinent imaging results. Radiologist's impression: No fracture, erosive change or periosteal reaction. Longitudinal ossific density in the posterior soft tissues of the thigh. Negative right hip. 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 IMPRESSION: Negative right femur Hip x-ray: Attestation: I have reviewed the pertinent imaging results. Radiologist's impression: Findings/impression: No acute fracture or malalignment. The hips, pubic symphysis, and sacroiliac joints are congruent with mild degenerative changes. There is an approximately 1.8 centimeter focus of mineralization adjacent to the right ischial tuberosity likely reflecting hydroxyapatite deposition at the right hamstring tendon origin, a potential pain generator. Partially imaged linear calcifications within the posterior aspect of the right thigh. Mild enthesopathy about the pelvis. Discharge Plan Discharge Disposition: Home, Self-Care Date of Admission: 12/29/24 18:26 Attending Provider on Discharge: Becky Morales Primary Care Provider: Tim Corral Condition: Improved Anticipated Discharge Date/Time: 12/31/24 14:00 Discharge Medications: New doxycycline hyclate 100 mg capsule 100 mg PO BID Qty: 10 0RF Discontinued Paxlovid 150 mg (10)- 100 mg (10) tablets,dose pack See Rx Instructions .ROUTE .COMPLEX Qty: 20 0RF Rx Instructions: orally per package directions Discharge Orders: Discharge Order (Routine); Ordered 12/31/24 Ordered By: Becky Morales Additional Instructions: Home to rest. Stay hydrated. Activity as tolerated. You will take Doxycycline twice daily for 5 days for your pneumonia. Outpatient follow up with your PCP next week. Activity Level: Activity as Tolerated Discharge Diet: Regular Follow Up Appointments: Tim Corral MD [Primary Care Provider, Family Practice] Referral Note: post hospital follow up 7-10 days. Recheck liver panel with PCP Forms: [facility] Belongings, [facility] Info Instructions
== END 2024-12-31 11:30 | disposition home or self-care (01) | DRG 177 ==
LOC: ED 17:53 → MEDSURG 18:25
PROVIDERS: Physician Assistant; Admitting Provider Family Medicine; Emergency Provider Family Medicine; PCP Family Medicine; Visit Provider Family Medicine
DX: U07.1 COVID-19 (principal); J12.82 Pneumonia due to coronavirus disease 2019; N17.9 Acute kidney failure, unspecified; R09.02 Hypoxemia; R74.8 Abnormal levels of other serum enzymes; R91.1 Solitary pulmonary nodule; M79.604 Pain in right leg; R53.1 Weakness
CPT/HCPCS: 36415; 71045; 71260; 73501; 73502; 73552; 74177; 80048; 80053; 80076; 83605; 84145; 84484; 85025; 86140; 87040; 87637; 93005; 94761; 97116; 97161; 97165; 97530; 97535; 99284; 99285; 99291; A9270; J0696; J1650; J7030; Q9967